=== PATIENT | male | born 1990 | race Caucasian/White ===

== ENCOUNTER 2023-03-24 11:26 | Emergency (ER) | payer BC, MEDICAID, SELFPAY ==
[2023-03-24 12:03] VITALS: BP 137/82; PULSE 76; RESP 18; TEMP 36.4; O2SAT 99
--- NOTE | 2023-03-24 12:47 | ED.URI ---
HPI - URI/Sore Throat General Chief Complaint: Upper Respiratory Infection Stated Complaint: sorethroat Time Seen by Provider: 03/24/23 12:31 Source: patient and RN notes reviewed Mode of arrival: ambulatory Limitations: no limitations History of Present Illness HPI Narrative: Patient presents today complaining of sore throat and postnasal drip since last night. He has no pain at rest, but pain increases to 5/10 with swallowing. Denies fever, cough. He has tried NyQuil and cough drops without much relief. Reports co-worker was recently diagnosed with thrush so he wanted to come and get checked out. Related Data Home Medications Medication Instructions Recorded Confirmed bupropion HCl (smoking deter) 150 mg PO 03/24/23 mg tablet,12 hr sustained-release(smoking deterrent) propranolol 20 mg tablet mg 03/24/23 sertraline 100 mg tablet mg 03/24/23 Allergies Allergy/AdvReac Type Severity Reaction Status Date / Time No Known Allergies Allergy Verified 03/24/23 12:42 Review of Systems Review of Systems: CONSTITUTIONAL: Denies body aches, fever, chills, or sweats. EYES: Denies visual changes, redness, or discharge. ENT: Denies rhinorrhea, congestion, or otalgia.+ sore throat, postnasal drip CARDIOVASCULAR: Denies chest pain, palpitations, or edema. RESPIRATORY: Denies cough or dyspnea. GASTROINTESTINAL: Denies abdominal pain, nausea, vomiting, or diarrhea. GENITOURINARY: Denies dysuria or hematuria. SKIN: Denies rash, itching, or wounds. MUSCULOSKELETAL: Denies back pain, joint pain, or myalgia. NEUROLOGIC: Denies headache, numbness, tingling, or weakness. PSYCH: Denies depression or anxiety. [facility] Surgical History Surgical History (Updated 03/24/23 @ 12:48 by Ewa Platt, [facility], ) Hx of tonsillectomy Comments At time of signature, I have reviewed and agree with nursing past medical, surgical, social and family history unless otherwise noted. Please see nursing chart for further information. There is no relevant family history pertinent to the presenting complaint Exam Narrative: GENERAL: Well-appearing, well-nourished, and in no acute distress. HEAD: Normocephalic, atraumatic. EYES: EOMI. No redness or drainage. Conjunctivae normal. ENT: Mucous membranes pink and moist. Nares clear. No rhinorrhea. TMs normal bilaterally. Throat mildly erythematous without edema or exudate. Tongue normal. tonsils absent.. Uvula midline. NECK: Normal AROM. Supple. No lymphadenopathy. CHEST: No respiratory distress. Clear to auscultation. HEART: Regular rate and rhythm. No murmur appreciated. EXTREMITIES: Normal range of motion. No edema. SKIN: Warm, dry, no rash. Capillary refill normal. Normal skin turgor. NEURO: No focal deficits. Alert and oriented x3. Gait steady. PSYCH: Normal affect. No signs of depression or anxiety. Course Course Level of Care: Express Care Visit Vital Signs Vital signs: Vital Signs Temperature 97.6 F 03/24/23 12:03 Pulse Rate 76 03/24/23 12:03 Respiratory Rate 18 03/24/23 12:03 Blood Pressure 137/82 03/24/23 12:03 Pulse Oximetry 99 03/24/23 12:03 Oxygen Delivery Room Air 03/24/23 12:03 Temperature 97.6 F 03/24/23 12:03 Pulse Rate 76 03/24/23 12:03 Respiratory Rate 18 03/24/23 12:03 Blood Pressure 137/82 03/24/23 12:03 Pulse Oximetry 99 03/24/23 12:03 Oxygen Delivery Room Air 03/24/23 12:03 Reviewed MDM - URI/Sore Throat MDM Narrative Medical decision making narrative: Rapid strep negative. Culture pending. Symptoms likely viral in etiology. Discussed [id number] treatment for symptoms. No prescription medications indicated at this time. Anticipatory guidance given. Differential Diagnosis Differential diagnosis: Likely upper respiratory infection, viral infection, pharyngitis and other (Strep throat) Lab Data Attestation: I reviewed the patient's lab results. Labs: Strep Screen
== END 2023-03-24 13:29 | disposition home or self-care (01) ==
PROVIDERS: Emergency Provider Nurse Practitioner
DX: J06.9 Acute upper respiratory infection, unspecified (principal)
CPT/HCPCS: 87081; 87880; 99203; G0463

== ENCOUNTER 2023-05-25 13:17 | Emergency (ER) | payer BC, SELFPAY ==
[2023-05-25 13:28] VITALS: BP 133/84; PULSE 81; RESP 18; TEMP 36.5; O2SAT 98
--- NOTE | 2023-05-25 14:03 | ED.SKABFB ---
HPI - Skin/Abscess/Foreign Bdy General Chief complaint: Skin/Abscess/Foreign Body Stated complaint: blister under lt foot Time Seen by Provider: 05/25/23 13:51 Source: patient and RN notes reviewed Mode of arrival: ambulatory Limitations: no limitations History of Present Illness HPI narrative: Patient presents today complaining of a blister on the bottom of his left foot x8 days. Believes he may have gotten bit by a spider. 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 Denies pain or itching. He is currently pain-free. No [id number] treatment prior to arrival. Related Data Home Medications Medication Instructions Recorded Confirmed sertraline 100 mg tablet mg 03/24/23 Allergies Allergy/AdvReac Type Severity Reaction Status Date / Time [facility] Allergy Unknown Verified 05/25/23 13:37 Review of Systems Review of Systems: CONSTITUTIONAL: Denies body aches, fever, chills, or sweats. EYES: Denies visual changes, redness, or discharge. ENT: Denies rhinorrhea, congestion, sore throat, or otalgia. CARDIOVASCULAR: Denies chest pain, palpitations, or edema. RESPIRATORY: Denies cough or dyspnea. GASTROINTESTINAL: Denies abdominal pain, nausea, vomiting, or diarrhea. GENITOURINARY: Denies dysuria or hematuria. SKIN: + blister to left foot MUSCULOSKELETAL: Denies back pain, joint pain, or myalgia. NEUROLOGIC: Denies headache, numbness, tingling, or weakness. PSYCH: Denies depression or anxiety. [facility] Surgical History Surgical History Hx of tonsillectomy Comments At time of signature, I have reviewed and agree with nursing past medical, surgical, social and family history unless otherwise noted. Please see nursing chart for further information. There is no relevant family history pertinent to the presenting complaint Exam Narrative: GENERAL: Well-appearing, well-nourished, and in no acute distress. HEAD: Normocephalic, atraumatic. EYES: EOMI. No redness or drainage. Conjunctivae normal. ENT: Mucous membranes pink and moist. NECK: Normal AROM. CHEST: No respiratory distress. EXTREMITIES: Normal range of motion. No edema. SKIN: Warm, dry, no rash. Capillary refill normal. Normal skin turgor. Approximately 1 cm round fluid-filled lesion to the plantar aspect of the arch of the left foot. Nontender to palpation. NEURO: No focal deficits. Alert and oriented x3. Gait steady. PSYCH: Normal affect. No signs of depression or anxiety. Course Course Level of Care: Express Care Visit Vital Signs Vital signs: Vital Signs Temperature 97.7 F 05/25/23 13:28 Pulse Rate 81 05/25/23 13:28 Respiratory Rate 18 05/25/23 13:28 Blood Pressure 133/84 05/25/23 13:28 Pulse Oximetry 98 05/25/23 13:28 Oxygen Delivery Room Air 05/25/23 13:28 Temperature 97.7 F 05/25/23 13:28 Pulse Rate 81 05/25/23 13:28 Respiratory Rate 18 05/25/23 13:28 Blood Pressure 133/84 05/25/23 13:28 Pulse Oximetry 98 05/25/23 13:28 Oxygen Delivery Room Air 05/25/23 13:28 Reviewed Procedures Abscess I/D foot: Date of Incision: 05/25/23 Time of Incision: 14:06 Side (if applicable): left Local Anesthetic: none Technique: other (18 gauge needle tip) Irrigation: No Packing used?: none I&D Results: Other (Clear fluid) Abcess I&D Additional Comments: Small amount of fluid resulting from small blister. Blister seems very superficial. Patient tolerated procedure well. Dressed with Band-Aid MDM - Skin/Abscess/Foreign Bdy MDM Narrative Medical decision making narrative: Patient's blister resulted in clear fluid. Will place patient on 5 days of Bactrim to ensure that there is no infection present. Discussed care instructions. Anticipatory guidance given. Differential Diagnosis Differential d
== END 2023-05-25 14:15 | disposition home or self-care (01) ==
PROVIDERS: Emergency Provider Nurse Practitioner
DX: S90.822A Blister (nonthermal), left foot, initial encounter (principal); L02.612 Cutaneous abscess of left foot; X58.XXXA Exposure to other specified factors, initial encounter
CPT/HCPCS: 10060; 99213; G0463

== ENCOUNTER 2024-03-19 15:26 | Emergency (ER) | payer BC, SELFPAY ==
[2024-03-19 15:33] VITALS: BP 148/105; PULSE 90; RESP 18; TEMP 36.6; O2SAT 98
--- NOTE | 2024-03-19 15:34 | ED_ITS ---
HPI - Eye Problem General Chief complaint: Eye Problems Stated complaint: LT Eye injury Time Seen by Provider: 03/19/24 15:27 Source: patient Mode of arrival: ambulatory Limitations: no limitations History of Present Illness HPI Narrative: Tadeo is a 33-year-old male patient presenting to the clinic today with complaints of a left eye injury/pain. He reports he got something into his eye last night while he was in the garage. Thinks it may been a bit of wood. He is having some tearing and foreign body sensation to the left lower lateral corner of the eyelid Related Data Home Medications ?Medication ?Instructions ?Recorded ?Confirmed ?Last Taken ?Type sertraline 100 mg tablet mg 03/24/23 06/05/23 Unknown History propranolol 20 mg tablet 20 mg PO Q12H 06/05/23 03/19/24 Unknown History Allergies Allergy/AdvReac Type Severity Reaction Status Date / Time cefaclor (From Ceclor) Allergy Unknown Verified 03/19/24 15:43 Review of Systems Review of Systems: Pertinent positives per HPI. Patient denies any fever, chills, rash, headache, visual changes, dizziness, cough, runny nose, sore throat, shortness of breath, chest pain, palpitations, nausea, vomiting, diarrhea, constipation, abdominal pain, or any urinary issues. [facility] Past Medical History Medical History MINERVA (generalized anxiety disorder) MDD (major depressive disorder), recurrent episode, moderate Morbid obesity Osteomyelitis of vertebra Pneumonia Chronic insomnia PTSD (post-traumatic stress disorder) Surgical History Surgical History Hx of tonsillectomy Family History Family History Father Diabetes mellitus Mother Epilepsy Social History Social History Social History: Single Smoking packs per day: 1 Smoking cigarettes per day: 20.0 Years smoked: 13 Smoking pack-years: 13.00 Smoking status: Former smoker Tobacco type: cigarettes Second hand tobacco smoke exposure: No Alcohol intake: never Substance use: current Substance use type: marijuana Last use: Pt does have a medical marijuana Do You Feel Safe in your Home?: Yes Lack of Transportation: No Lack of Food: Never True Current Housing: I Have Housing Concerned About Future Housing: No Difficulty Paying Gas/Electric Bills: No Difficulty Paying for Meds: No Currently Unemployed: No Education: Don't Know Difficulty w/ Childcare or Family Care: No Living arrangements: alone Occupation/Education: occupation Additional occupation/education comments: [employer] Gender identity (if verbalized by the patient): Male Sexual Orientation (if Verbalized by the Patient): Straight or Heterosexual Exam Narrative: General: Well-developed, well nourished, in no apparent distress Head: Normocephalic, atraumatic Eyes: Pupils equally round and reactive to light bilaterally, EOM intact, sclera and conjunctive clear, no discharge, lids normal, no obvious visual foreign body, Wood's lamp exam was performed and corneal abrasion was seen outside the visual field in the lateral left lower corner of the eye-over the sclera Ears: TMs intact and clear, ear canals clear, no drainage, grossly hearing normal. Nose: Nares patent, no discharge, no inflammation, no sinus tenderness. Mouth: Oropharynx without lesions or masses, good dentition, MMM. Neck: Supple, trachea midline, no enlargement of anterior or posterior cervical nodes, no thyroid masses or goiter palpable. Cardio: Regular rate and rhythm, s1 and s2 normal, no murmur appreciated. Resp: Clear to auscultation bilaterally anteriorly and posteriorly, no rhonchi, rales, wheezing or rubs Course Course Level of Care: Express Care Visit Vital Signs Vital signs: Vital Signs Temperature 36.6 C 03/19/24 15:33 Pulse Rate 90 03/19/24 15:33 Respiratory Rate 18 03/19/24 15:33 Blood Pressure 148/105 H 03/19/24 15:33 Pulse Oximetry 98 03/19/24 15:33 Oxygen Delivery Room Air 03/19/24 15:33 Temperature 36.6 C 03/19/24 15:33 Pulse Rate 90 03/19/24 15:33 Respiratory Rate 18 03/19/24 15:33 Blood Pressure 148/105 H 03/19/24 15:33 Pulse Oximetry 98 03/19/24 15:33 Oxygen Delivery Room Air 03/19/24 15:33 Procedures Other Procedure Procedure 1: Other Procedure: One drop of topical tetracaine anesthetic was instilled with good anesthesia. Fluorescein stain of the left eye was performed.Epithelial defect was noted to the left lateral lower sclera. NO FB, ulcer or dendritic lesions. Upper lid was everted and no FB or lesions were noted. NO Angel Luis sign. Normal saline irrigation eye solution was performed and the patient tolerated the procedure well, no adverse reaction or complications. MDM - Eye Problem MDM Narrative Medical decision making narrative: At the time of visit patient is resting comfortably on the exam table. Patient appears to be nontoxic. Procedure: Wood's lamp exam was performed. Corneal abrasion was noted to the left lower lateral eye at 7 o'clock Plan: I suspect patient has corneal abrasion. Prescription for tobramycin eyedrops was sent to the pharmacy. Supportive measures were discussed with the patient and they voiced understanding discharge instructions and agrees to treatment plan. Return precautions reviewed Differential Diagnosis Differential diagnosis: Likely corneal abrasion, conjunctivitis, acute iritis, hyphema, periorbital cellulitis, subconjunctival hemorrhage, glaucoma, corneal ulcer and ruptured globe Discharge Plan Discharge Clinical Impression: Corneal abrasion, left Qualifiers: Encounter type: initial encounter Qualified Code(s): S05.02XA - Injury of conjunctiva and corneal abrasion without foreign body, left eye, initial encounter Patient Disposition: Home, Self-Care Condition: Stable Instructions: Antibiotic Form, Corneal Abrasion (ED) Additional Instructions: Practice good hand washing techniques Avoid touching eyes Instill eyedrops as prescribed May use warm or cool moist washcloth to help alleviate discomfort If eyes are matted shut-do not pry eyes open-use a warm moist cloth to loosen matting and wipe matter away from eye May take Tylenol/Motrin as needed for pain or fever May wear sunglasses if you are having photosensitivity Follow-up with your PCP or eye doctor in 2-3 days if symptoms persist or sooner if they worsen Go to the emergency room if you develop any fever that is not controlled by Tylenol or Motrin, loss of vision, eye pain, increase eye swelling,visual changes, headache, confusion, lethargy, weakness, chest pain, or shortness of breath. Patient Language: Iranian Prescriptions: New tobramycin 0.3 % drops 1 drp LEFT EYE Q4H 7 Days Qty: 5 0RF No Action sertraline 100 mg tablet propranolol 20 mg tablet 20 mg PO Q12H Follow-up/Referrals: Andrés,MD Phil [Primary Care Provider] - Time of Disposition: 15:52
[2024-03-19] MEDS: FLUORESCEIN SOD 1 MG/STRIP AFFCTD EYE (15:40)
[2024-03-19] MEDS: DACRIOSE EYE IRRIGATION 118 ML BOTTLE AFFCTD EYE (15:40)
[2024-03-19] MEDS: TETRACAINE HCL 0.5% OPHTH SOLN 4 ML BTL AFFCTD EYE (19:25)
--- OUTSIDE RECORDS SUMMARY | 2024-03-23 01:41 | XMS_ITS | Encounter Summary ---
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 Name Role Phone Phil Bowen MD Primary Care Provider Encounter Details Date Type Department Care Team (Late st Contact Info) Description 07/08/2023 Telephone [facility] Primary Care at [address] [place] [address] Phil Bowen MD [address] [place] [address] [address] [place] [address] Social History Tobacco Use Types Packs/Day Years Used Date Smoking Tobacco: Former Cigarettes 0 12/06/2022 - 04/07/2009 PHQ-2 Answer Date Recorded PHQ-2 Total Score (If total score is 3 or more points, staff should administer the PHQ-9) 0 06/10/2023 Personal Safety Answer Date Recorded Getting School Help Needed Not on file 03/19 Sex and Gender Information Value Date Recorded Sex Assigned at Not on file Legal Sex Male 12:57 PM CDT Gender Identity Male 11/26/2022 10:43 AM CDT Sexual Orientation Straight 11/26/2022 10 :43 AM CDT documented as of this encounter Miscellaneous Notes * Telephone Encounter - Alyce Dahl MA - 07/08/2023 8:59 AM CDT Spoke with patient . He has an appointment 07/22/2023. * Telephone Encounter - Alyce Dahl MA - 07/08/2023 8:58 AM CDT ----- Message from Phil Bowen MD sent at 07/08/2023 7:45 AM CDT ----- Testosterone was low again, was he able to schedule with endocrinology or urology for TRT? documented in this encounter Plan of Treatment Not on file documented as of this encounter Visit Diagnoses Not on filedocumented in this encounter Care Teams Machine Shorthand Teacher Relationship Specialty Start Date End Date Phil Bowen MD PCP - General Family Medicine 11/12/21 documented as of this encounter
--- OUTSIDE RECORDS SUMMARY | 2024-03-23 01:41 | XMS_ITS | Referral Summary ---
Author Organization [facility] Address [address] [facility] [address] [place] [address] Phone Care Team Providers Care Form Builder Helper Name Role Phone Phil Bowen MD Primary Care Provider [phone] Allergies Active Allergy Reactions Criticality Noted Date Comments Cefaclor Other (See comments) Low 11/12/2021 unsure Medications traZODone (DESYREL) 50 mg tablet TAKE 1 TABLET(50 MG) BY MOUTH EVERY NIGHT NEEDED FOR SLEEP 100 tablet 1 4 Active testosterone cypionate (DEPO-TESTOTERO NE) 200 mg/mL injection ADMINISTER 0.5 ML IN THE MUSCLE 1 TIME A WEEK 4 Active BD Luer-Mikayla Syringe 3 mL 23 gauge x 1 1/2 syringe 4 Active sertraline (ZOLOFT) 100 mg tablet Take 1.5 tablets (150 mg total) by mouth daily 90 tablet 4 Active Active Problems Problem Noted Date Diagnosed Date Low testosterone in male 09/11/2023 Insomnia due to other mental disorder 06/10/2023 Overview (06/10/2023): new problem states that mind is racing will do trial with trazodone Morbid (severe) obesity due to excess calories 0 06/10/2023 Assessment & Plan (09/11/2023 3:20 PM CDT): Wt Readings from Last 3 Encounters: 06/10/23 135.9 kg (299 lb 8 oz) 12/12/22 129.3 kg (285 lb) 09/09/22 131.5 kg (290 lb) BMI Readings from Last 3 Encounters: 06/10/23 40.61 kg/m?? 12/12/22 38.65 kg/m?? 09/09/22 39.33 kg/m?? Not at goal of bmi <30 Continue diet and exercise BMI Follow-up includes: nutrition counseling and exercise counseling. Assessment & Plan (06/10/2023 2:52 PM BRONZE PLATER): Wt Readings from Last 3 Encounters: 06/10/23 135.9 kg (299 lb 8 oz) 12/12/22 129.3 kg (285 lb) 09/09/22 131.5 kg (290 lb) BMI Readings from Last 3 Encounters: 06/10/23 40.61 kg/m?? 12/12/22 38.65 kg/m?? 09/09/22 39.33 kg/m?? Not at goal of bmi <30 Continue diet and exercise BMI Follow-up includes: nutrition counseling and exercise counseling. Current smoker 09/09/2022 Assessment & Plan (12/12/2022 4:23 PM CDT): Will continue wellbutrin for another 3 months and then d/c after that Has now quit smoking as of about 2 months now Assessment & Plan (09/09/2022 8:03 AM CDT): Discussed different options for smoking cessation today Discussed chantix vs wellbutrin Due to an anxiety will do trial with wellbutrin If is uanble to quit can then try chantix, pt will reach out to us in the next 2- 3 months or if any side effects Mixed hyperlipidemia 05/15/2022 Assessment & Plan (06/10/2023 2:45 PM BRONZE PLATER): Brought labs today from work Showing hyperlipidemia Elevated LDL, high trigs, high cholesterol Diet and exercise discussed Recheck labs Assessment & Plan (05/15/2022 3:48 PM BRONZE PLATER): No results found for: CHOL, POCCHOL No results found for: HDL, POCHDL No results found for: LDLCALC, CLDL, HIRISKLDL, LDL, LDLC, LDLDIRECT, LDLMED, LDLP, POCLDL, SCRLDL, SMALLLDLP, TOTLDLC No results found for: TRIG, POCTRIG No results found for: POCCHDLR No results found for: POCNONHDL No results found for: POCCHLPL Class 3 severe obesity due t o excess calories without serious comorbidity with body mass index (BMI) of 40.0 to 44.9 in adult 11/12/2021 Assessment & Plan (09/11/2023 3:19 PM CDT): Wt Readings from Last 3 Encounters: 06/10/23 135.9 kg (299 lb 8 oz) 12/12/22 129.3 kg (285 lb) 09/09/22 131.5 kg (290 lb) BMI Readings from Last 3 Encounters: 06/10/23 40.61 kg/m?? 12/12/22 38.65 kg/m?? 09/09/22 39.33 kg/m?? Not at goal of bmi <30 Continue diet and exercise BMI Follow-up includes: nutrition counseling and exercise counseling. Assessment & Plan (06/10/2023 2:52 PM BRONZE PLATER): Wt Readings from Last 3 Encounters: 06/10/23 135.9 kg (299 lb 8 oz) 12/12/22 129.3 kg (285 lb) 09/09/22 131.5 kg (290 lb) BMI Readings from Last 3 Encounters: 06/10/23 40.61 kg/m?? 12/12/22 38.65 kg/m?? 09/09/22 39.33 kg/m?? Not at goal of bmi <30 Continue diet and exercise BMI Follow-up includes: nutrition counseling and exercise counseling. Assessment & Plan (12/12/2022 4:23 PM CDT): Wt Readings from Last 3 Encounters: 12/12/22 129.3 kg (285 lb) 09/09/22 131.5 kg (290 lb) 05/15/22 129.3 kg (285 lb) BMI Readings from Last 3 Encounters: 12/12/22 38.65 kg/m?? 09/09/22 39.33 kg/m?? 05/15/22 38.64 kg/m?? Not at goal of bmi <30 Continue diet and exercise BMI Follow-up includes: nutrition counseling and exercise counseling. Assessment & Plan (09/09/2022 7:52 AM CDT): Wt Readings from Last 3 Encounters: 09/09/22 131.5 kg (290 lb) 05/15/22 129.3 kg (285 lb) 02/12/22 131.5 kg (290 lb) BMI Readings from Last 3 Encounters: 09/09/22 39.33 kg/m?? 05/15/22 38.64 kg/m?? 02/12/22 39.32 kg/m?? Not at goal of bmi <30 Continue diet and exercise BMI Follow-up includes: nutrition counseling and exercise counseling. Assessment & Plan (05/15/2022 3:42 PM BRONZE PLATER): Wt Readings from Last 3 Encounters: 05/15/22 129.3 kg (285 lb) 02/12/22 131.5 kg (290 lb) 11/12/21 133.4 kg (294 lb) BMI Readings from Last 3 Encounters: 05/15/22 38.64 kg/m?? 02/12/22 39.32 kg/m?? 11/12/21 39.87 kg/m?? Not at goal of bmi <30 Continue diet and exercise BMI Follow-up includes: nutrition counseling and exercise counseling. Assessment & Plan (02/12/2022 4:29 PM BRONZE PLATER): BMI Follow-up includes: nutrition counseling and exercise counseling. Wt Readings from Last 3 Encounters: 02/12/22 131.5 kg (290 lb) 11/12/21 133.4 kg (294 lb) Improving but not at goal Assessment & Plan (11/12/2021 4:42 PM CDT): BMI Follow-up includes: nutrition counseling and exercise counseling. Not at goal PTSD (post-traumatic stress disorder) 11/12/2021 Assessment & Plan (06/10/2023 2:49 PM BRONZE PLATER): Not quite at goal Less sx of ptsd more of anxiety [id number] zoloft 100 mg every day Assessment & Plan (02/12/2022 4:29 PM BRONZE PLATER): Continue ssri - will increase zoloft to 50 mg and see how he does. Assessment & Plan (11/12/2021 4:53 PM CDT): Sx have improved with medical marijuana. Will start ssri, refer to psychiatry and psychotherapist Well adult exam 11/07/2021 Assessment & Plan (06/10/2023 2:54 PM BRONZE PLATER): Discussed lifestyle modifications, diet and exercise. Routine blood work ordered/reviewed today. Yearly vision and dental examinations. Chronic anxiety 11/07/2021 Assessment & Plan (09/11/2023 3:23 PM CDT): Starting seeing a psychiatrist but states that he doesn't think tiw as a good fit and is nto going to continue seeing her Continue zoloft 150 mg every day every day Trazodone prn Assessment & Plan (06/10/2023 2:51 PM BRONZE PLATER): Worsening sx at this time Start buspar 7.5 mg bid Continue zolfot 100 mg every day Startr trazodone 50 mg qhs prn Assessment & Plan (12/12/2022 4:23 PM CDT): States that doing well with zoloft C/w zoloft 100 mg every day Assessment & Plan (09/09/2022 7:52 AM CDT): States that doing well with zoloft C/w zoloft 100 mg every day Can consider adding wellbutrin for smoking cessation Assessment & Plan (05/15/2022 3:43 PM BRONZE PLATER): Improvement ins x but still having some sx of anxiety. Will increase zoloft 100 mg a day, and can continue inderal as well Assessment & Plan (02/12/2022 4:25 PM BRONZE PLATER): Improvement ins x but still having some social anxiety and that worsens He says that he gets sweaty and heart races Will start trial with propranolol and increase zoloft to 50 mg Assessment & Plan (11/12/2021 4:49 PM CDT): Not well controlled at this time - feels daily sx. Has episodes of nightmares as well Will do trial with ssri and titrate depending on response Resolved Problems Problem Noted Date Diagnosed Date Resolved Date Body mass index 40.0-44.9, adult ([facility]) 06/10/2023 06/10/2023 Immunizations Name Administration Dates Next Due DTP 09/02/1992,1991 Hep B, Adolescent or Pediatric 03/05/2001,2000 HiB 09/02/1992,1991 Influenza, Unspecified 06/10/2023(Deferr ed: Patient Refused),03/28/2022(Deferred: Patient Refused),11/12/2021(Deferred: Patient Refused),06/05/2021(Deferred: Patient Refused),01/12/2021(Deferred: Patient Refused) OPV 09/02/1992,1991 Tdap 05/15/2022,07/24/2016 Social History Tobacco Use Types Packs/Day Years Used Date Smoking Tobacco: Former Cigarettes 0 12/06/2022 - 04/07/2009 Tobacco Cessation:Counseling Given: Not Answered PHQ-2 Answer Date Recorded PHQ-2 Total Score [...] Orientation Straight 11/26/2022 10 :43 AM CDT Last Filed Vital Signs Vital Sign Reading Time Taken Comments Blood Pressure 116/86 06/10/2023 2:29 PM BRONZE PLATER Pulse 101 06/10/2023 2:29 PM BRONZE PLATER Temperature - - Respiratory Rate 16 06/10/2023 2:29 PM BRONZE PLATER Oxygen Saturation 97% 06/10/2023 2:29 PM BRONZE PLATER Inhaled Oxygen Concentration - - Weight 135.9 kg (299 lb 8 oz) 06/10/2023 2:29 PM BRONZE PLATER Height 182.9 cm (6' 0.01 ) 06/10/2023 2:29 PM CS T Body Mass Index 40.61 06/10/2023 2:29 PM BRONZE PLATER Plan of Treatment Not on file Insurance [employer] [address] [place] [id number] [employer] Care Teams Form Builder Helper Relationship Specialty Start Date End Date Phil Bowen MD PCP - General Family Medicine 11/12/21
--- OUTSIDE RECORDS SUMMARY | 2024-03-23 01:41 | XMS_ITS | Clinical Summary ---
Author Organization [facility] Address [address] [address] Phone Care Team Providers Care Powerhouse Oiler Name Role Phone Phil Bowen MD Primary Care Provider [phone] Allergies Active Allergy Reactions Criticality Noted Date [...] counseling. Assessment & Plan (06/10/2023 2:52 PM ROOFING TECHNICIAN): Wt Readings from Last 3 Encounters: 06/10/23 [...] 05/15/2022 Assessment & Plan (06/10/2023 2:45 PM ROOFING TECHNICIAN): Brought labs today from work Showing hyperlipidemia Elevated LDL, high trigs, high cholesterol Diet and exercise discussed Recheck labs Assessment & Plan (05/15/2022 3:48 PM ROOFING TECHNICIAN): No results found for: CHOL, POCCHOL No [...] counseling. Assessment & Plan (06/10/2023 2:52 PM ROOFING TECHNICIAN): Wt Readings from Last 3 Encounters: 06/10/23 [...] counseling. Assessment & Plan (05/15/2022 3:42 PM ROOFING TECHNICIAN): Wt Readings from Last 3 Encounters: 05/15/22 129.3 kg (285 lb) 02/12/22 131.5 kg (290 lb) 11/12/21 133.4 kg (294 lb) BMI Readings from Last 3 Encounters: 05/15/22 38.64 kg/m?? 02/12/22 39.32 kg/m?? 11/12/21 39.87 kg/m?? Not at goal of bmi <30 Continue diet and exercise BMI Follow-up includes: nutrition counseling and exercise counseling. Assessment & Plan (02/12/2022 4:29 PM ROOFING TECHNICIAN): BMI Follow-up includes: nutrition counseling and exercise counseling. Wt Readings from Last 3 Encounters: 02/12/22 131.5 kg (290 lb) 11/12/21 133.4 kg (294 lb) Improving but not at goal Assessment & Plan (11/12/2021 4:42 PM CDT): BMI Follow-up includes: nutrition counseling and exercise counseling. Not at goal PTSD (post-traumatic stress disorder) 11/12/2021 Assessment & Plan (06/10/2023 2:49 PM ROOFING TECHNICIAN): Not quite at goal Less sx of ptsd more of anxiety [id number] zoloft 100 mg every day Assessment & Plan (02/12/2022 4:29 PM ROOFING TECHNICIAN): Continue ssri - will increase zoloft to 50 mg and see how he does. Assessment & Plan (11/12/2021 4:53 PM CDT): Sx have improved with medical marijuana. Will start ssri, refer to psychiatry and psychotherapist Well adult exam 11/07/2021 Assessment & Plan (06/10/2023 2:54 PM ROOFING TECHNICIAN): Discussed lifestyle modifications, diet and exercise. Routine [...] prn Assessment & Plan (06/10/2023 2:51 PM ROOFING TECHNICIAN): Worsening sx at this time Start buspar [...] cessation Assessment & Plan (05/15/2022 3:43 PM ROOFING TECHNICIAN): Improvement ins x but still having some sx of anxiety. Will increase zoloft 100 mg a day, and can continue inderal as well Assessment & Plan (02/12/2022 4:25 PM ROOFING TECHNICIAN): Improvement ins x but still having some [...] Resolved Date Body mass index 40.0-44.9, adult ([facility]) 06/10/2023 06/10/2023 Immunizations Name Administration Dates Next [...] Orientation Straight 11/26/2022 10 :43 AM CDT Obstetrics History Last Filed Vital Signs Vital Sign Reading Time Taken Comments Blood Pressure 116/86 06/10/2023 2:29 PM ROOFING TECHNICIAN Pulse 101 06/10/2023 2:29 PM ROOFING TECHNICIAN Temperature - - Respiratory Rate 16 06/10/2023 2:29 PM ROOFING TECHNICIAN Oxygen Saturation 97% 06/10/2023 2:29 PM ROOFING TECHNICIAN Inhaled Oxygen Concentration - - Weight 135.9 kg (299 lb 8 oz) 06/10/2023 2:29 PM ROOFING TECHNICIAN Height 182.9 cm (6' 0.01 ) 06/10/2023 2:29 PM CS T Body Mass Index 40.61 06/10/2023 2:29 PM ROOFING TECHNICIAN Plan of Treatment Health Maintenance Due Date Last Done Comments Hepatitis C Screening 1991 Varicella Vaccines (1 of 2 - 13+ 2-dose series) 07/16/2004 Covid-19 Vaccine ( - season) 2023 03/27/2021, 07/31/2020, 07/10/2020 Influenza Vaccine (#1) 2023 Depression Screening 06/09/2024 06/10/2023, 12/12/2022, 09/09/2022, Additional history exists Regular Well Visit/Exam 18-64 06/09/2024 06/10/2023 DTaP/Tdap/Td Vaccine (5 - Td or Tdap) 05/15/2032 05/15/2022, 07/24/2016, 09/02/1992, Additional history exists HPV Vaccines Aged Out No longer eligi ble based on patient's age to complete this topic Pneumococcal vaccine <65 Aged Out No longer eligible based on patient's age to complete this topic Insurance [employer] OOS [employer] Care Teams Powerhouse Oiler Relationship Specialty Start Date End Date Phil Bowen MD PCP - General Family Medicine 11/12/21
--- OUTSIDE RECORDS SUMMARY | 2024-03-23 01:41 | XMS_ITS | Encounter Summary ---
Author Organization [facility] Healthcare Address [address] [place] [address] Care Team Providers Care Gardener Florist Name Role Phone Phil Bowen MD Primary Care Provider [phone] Encounter Details Date Type Department Care Team (Late st Contact Info) Description 07/28/2023 Patient Self-Triage [facility] [address] [place] [address] Mychart, Generic Provider [address] [place], [place] [id number] Social History Tobacco Use Types Packs/Day Years [...] AM CDT documented as of this encounter Plan of Treatment Not on file documented as of this encounter Visit Diagnoses Not on filedocumented in this encounter Care Teams Gardener Florist Relationship Specialty Start Date End Date Phil Bowen MD PCP - General Family Medicine 11/12/21 documented as of this encounter
--- OUTSIDE RECORDS SUMMARY | 2024-03-23 01:41 | XMS_ITS | Encounter Summary ---
Author Organization [facility] Healthcare Address [address] [place] [address] Care Team Providers Care Sports Activities Foul Judge Name Role Phone Phil Bowen MD Primary Care Provider [phone] Encounter Details Date Type Department Care Team (Late st Contact Info) Description 09/11/2023 3:15 PM CDT Telemedicine [facility] Primary Care at [address] [place] [address] Phil Bowen MD [address] [place] [address] [address] [place] [address] Chronic anxiety (Primary Dx); Class 3 severe obesity due to excess calories without serious comorbidity with body mass index (BMI) of 40.0 to 44.9 in adult (HCC); Morbid (severe) obesity due to excess calories (HCC); Low testosterone in male Social History Tobacco Use Types Packs/Day Years [...] AM CDT documented as of this encounter Ordered Prescriptions Prescription Sig Dispense Quantity Refills Last Filled Start Date End Date sertraline (ZOLOFT) 100 mg tablet Take 1.5 tablets (150 mg total) by mouth daily 09/11/2023 4 documented in this encounter Progress Notes * Phil Bowen MD - 09/11/2023 3:15 PM CDT Images from the original note were not included. Subjective/Objective Patient ID: Tadeo Vivas is a 33 y.o. male. Chief Complaint No chief complaint on file. This was a telemedicine visit with Tadeo Vivas alone which took place via real-time video connection. During the visit, I was located in the office and the patient was located at home in the [facility]. The patient visit started at 3:15 and ended at 3:30. I have explained the option of participating in a telemedicine visit to the patient. After being given an opportunity to ask questions about and discuss this type of visit, the patient verbally consented to proceeding with the telemedicine visit. The patient understands that this service replaces an office visit and they may be billed and/or responsible for any applicable copayments. A guest was not included in this video visit. HPI: Tadeo Vivas 33 y.o. man has no past medical history on file. who presents for f/u of anxietyand depression, TRT No acute complaints PHQ Screening Allergies Allergen Reactions Ceclor [Cefaclor] Other (See comments) unsure Current Outpatient Medications Medication Sig Dispense Refill buPROPion SR (ZYBAN) 150 mg 12 hr tablet TAKE 1 TABLET BY MOUTH TWICE A DAY (Patient not taking: Reported on 06/10/2023) 180 tablet 1 busPIRone (BUSPAR) 7.5 mg tablet Take 1 tablet (7.5 mg total) by mouth 2 (two) times a day 120 tablet 0 propranoloL (INDERAL) 20 mg tablet Take 1 tablet (20 mg total) by mouth 2 (two) times a day 180 tablet 0 sertraline (ZOLOFT) 100 mg tablet Take 1 tablet (100 mg total) by mouth daily 90 tablet 1 traZODone (DESYREL) 50 mg tablet TAKE 1 TABLET(50 MG) BY MOUTH EVERY NIGHT NEEDED FOR SLEEP 100 tablet 1 No current facility-administered medications for this visit. Review of Systems Constitutional: Negative for chills and fever. Respiratory: Negative for cough, chest tightness and shortness of breath. Cardiovascular: Negative for chest pain and palpitations. Gastrointestinal: Negative for abdominal pain and diarrhea. Genitourinary: Negative for difficulty urinating. Neurological: Negative for headaches. There were no vitals taken for this visit. There is no height or weight on file to calculate BMI. Physical Exam Constitutional: General: He is not in acute distress. Appearance: Normal appearance. HENT: Head: Normocephalic. Right Ear: External ear normal. Left Ear: External ear normal. Nose: Nose normal. Eyes: Extraocular Movements: Extraocular movements intact. Pulmonary: Effort: Pulmonary effort is normal. Musculoskeletal: General: Normal range of motion. Cervical back: Normal range of motion. Neurological: Mental Status: He is alert and oriented to person, place, and time. Psychiatric: Mood and Affect: Mood normal. Behavior: Behavior normal. No results found for: WBC , HGB , HCT , MCV , LABPLAT Chemistry No results found for: SODIUM , POTASSIUM , CHLORIDE , CO2 , ANIONGAP , BUNSER , CREATININE , GLUCOSE , URICACID , CALCIUM , BILITOT , PROTEIN , ALBUMIN , GFRNAA , GFRAA , ALKPHOS , AST , ALT , PHOS , MAGNESIUM Lab Results Component Value Date HGBA1C 4.7 06/10/2023 Lab Results Component Value Date LDLCALC 94 06/10/2023 Lab Results Component Value Date CHOL 207 (H) 06/10/2023 Lab Results Component Value Date HDL 35 (L) 06/10/2023 Lab Results Component Value Date LDLCALC 94 06/10/2023 Lab Results Component Value Date TRIG 388 (H) 06/10/2023 No results found for: POCCHDLR No results found for: POCNONHDL No results found for: POCCHLPL Assessment/Plan Diagnoses and all orders for this visit: Chronic anxiety (Primary) Assessment & Plan: Starting seeing a psychiatrist but states that he doesn't think tiw as a good fit and is nto going to continue seeing her Continue zoloft 150 mg every day every day Trazodone prn Class 3 severe obesity due to excess calories without serious comorbidity with body mass index (BMI) of 40.0 to 44.9 in adult (HCC) Assessment & Plan: Wt Readings from Last 3 Encounters: 06/10/23 135.9 kg (299 lb 8 oz) 12/12/22 129.3 kg (285 lb) 09/09/22 131.5 kg (290 lb) BMI Readings from Last 3 Encounters: 06/10/23 40.61 kg/m?? 12/12/22 38.65 kg/m?? 09/09/22 39.33 kg/m?? Not at goal of bmi <30 Continue diet and exercise BMI Follow-up includes: nutrition counseling and exercise counseling. Morbid (severe) obesity due to excess calories (HCC) Assessment & Plan: Wt Readings from Last 3 Encounters: 06/10/23 135.9 kg (299 lb 8 oz) 12/12/22 129.3 kg (285 lb) 09/09/22 131.5 kg (290 lb) BMI Readings from Last 3 Encounters: 06/10/23 40.61 kg/m?? 12/12/22 38.65 kg/m?? 09/09/22 39.33 kg/m?? Not at goal of bmi <30 Continue diet and exercise BMI Follow-up includes: nutrition counseling and exercise counseling. Low testosterone in male Comments: following with urology started TRT Other orders - sertraline (ZOLOFT) 100 mg tablet; Take 1.5 tablets (150 mg total) by mouth daily Return in about 7 months (around 04/12/2024) for Annual physical. documented in this encounter Miscellaneous Notes * Assessment & Plan Note - Phil Bowen MD - 09/11/2023 3:22 PM CDTAssociated Problem(s): Chronic anxiety Starting seeing a psychiatrist but states that he doesn't think tiw as a good fit and is nto going to continue seeing her Continue zoloft 150 mg every day every day Trazodone prn * Assessment & Plan Note - Phil Bowen MD - 09/11/2023 3:20 PM CDTAssociated Problem(s): Morbid (severe) obesity due to excess calories (HCC) Wt Readings from Last 3 Encounters: 06/10/23 135.9 kg (299 lb 8 oz) 12/12/22 129.3 kg (285 lb) 09/09/22 131.5 kg (290 lb) BMI Readings from Last 3 Encounters: 06/10/23 40.61 kg/m?? 12/12/22 38.65 kg/m?? 09/09/22 39.33 kg/m?? Not at goal of bmi <30 Continue diet and exercise BMI Follow-up includes: nutrition counseling and exercise counseling. * Assessment & Plan Note - Phil Bowen MD - 09/11/2023 3:19 PM CDTAssociated Problem(s): Class 3 severe obesity due to excess calories without serious comorbidity with body mass index (BMI) of 40.0 to 44.9 in adult (HCC) Wt Readings from Last 3 Encounters: 06/10/23 135.9 kg (299 lb 8 oz) 12/12/22 129.3 kg (285 lb) 09/09/22 131.5 kg (290 lb) BMI Readings from Last 3 Encounters: 06/10/23 40.61 kg/m?? 12/12/22 38.65 kg/m?? 09/09/22 39.33 kg/m?? Not at goal of bmi <30 Continue diet and exercise BMI Follow-up includes: nutrition counseling and exercise counseling. documented in this encounter Plan of Treatment Not on file documented as of this encounter Visit Diagnoses Diagnosis Chronic anxiety- Primary Anxiety state, unspecified Class 3 severe obesity due to excess calories without serious comorbidity with body mass index (BMI) of 40.0 to 44.9 in adult (HCC) Morbid (severe) obesity due to excess calories ([facility]) Low testosterone in male documented in this encounter Discontinued Medications Medication Sig Discontinue Reason Start Date End Da te propranoloL (INDERAL) 20 mg tablet Take 1 tablet (20 mg total) by mouth 2 (two) times a day 12/30/2022 09/11/2023 busPIRone (BUSPAR) 7.5 mg tabletIndications:Genera lized Anxiety Disorder Take 1 tablet (7.5 mg total) by mouth 2 (two) times a day 06/10/2023 09/11/2023 buPROPion SR (ZYBAN) 150 mg 12 hr tablet TAKE 1 TABLET BY MOUTH TWICE A DAY 12/06/2022 09/11/2023 sertraline (ZOLOFT) 100 mg tablet Take 1 tablet (100 mg total) by mouth daily 12/28/2022 09/11/2023 documented as of this encounter Care Teams Sports Activities Foul Judge Relationship Specialty Start Date End Date Phil Bowen MD PCP - General Family Medicine 11/12/21 documented as of this encounter
--- OUTSIDE RECORDS SUMMARY | 2024-03-23 01:42 | XMS_ITS | Encounter Summary ---
Author Organization [facility] Healthcare Address [address] [place] [address] Care Team Providers Care Electrician Telephone Name Role Phone Phil Bowen MD Primary Care Provider [phone] Reason for Visit * Reason Comments Anxiety Encounter Details Date Type Department Care Team (Late st Contact Info) Description 06/10/2023 2:30 PM AIR REDUCTION EQUIPMENT OPERATOR Office Visit [facility] Medical Group Primary Care at [address] [place] [address] Phil Bowen MD [address] [place] [address] [address] [place] [address] Well adult exam (Primary Dx); Class 3 severe obesity due to excess calories without serious comorbidity with body mass index (BMI) of 40.0 to 44.9 in adult (HCC); Chronic anxiety; Mixed hyperlipidemia; PTSD (post-traumatic stress disorder); Elevated ferritin level; Decreased libido; Insomnia due to other mental disorder; Fatigue, unspecified type; Morbid (severe) obesity due to excess calories (HCC); Impaired fasting blood sugar Social History Tobacco Use Types Packs/Day Years [...] AM CDT documented as of this encounter Last Filed Vital Signs Vital Sign Reading Time Taken Comments Blood Pressure 116/86 06/10/2023 2:29 PM AIR REDUCTION EQUIPMENT OPERATOR Pulse 101 06/10/2023 2:29 PM AIR REDUCTION EQUIPMENT OPERATOR Temperature - - Respiratory Rate 16 06/10/2023 2:29 PM AIR REDUCTION EQUIPMENT OPERATOR Oxygen Saturation 97% 06/10/2023 2:29 PM AIR REDUCTION EQUIPMENT OPERATOR Inhaled Oxygen Concentration - - Weight 135.9 kg (299 lb 8 oz) 06/10/2023 2:29 PM AIR REDUCTION EQUIPMENT OPERATOR Height 182.9 cm (6' 0.01 ) 06/10/2023 2:29 PM CS T Body Mass Index 40.61 06/10/2023 2:29 PM AIR REDUCTION EQUIPMENT OPERATOR documented in this encounter Ordered Prescriptions Prescription Sig Dispense Quantity Refills Last Filled Start Date End Date busPIRone (BUSPAR) 7.5 mg tabletIndications: Generalized Anxiety Disorder Take 1 tablet (7.5 mg total) by mouth 2 (two) times a day 120 tablet 06/10/2023 4 traZODone (DESYREL) 50 mg tablet Take 1 tablet (50 mg total) by mouth nightly as needed for sleep 30 tablet 1 06/10/2023 4 documented in this encounter Progress Notes * Phil Bowen MD - 06/10/2023 2:30 PM CST Images from the original note were not included. Subjective/Objective Patient ID: Tadeo Vivas is a 32 y.o. male. Chief Complaint Anxiety HPI: Tadeo Vivas 32 y.o. man has no past medical history on file. who presents for his annual physical exam and for worsening anxiety States that he has no libido and has a difficulty with discipline PHQ Screening Over the last 2 weeks, how often have you been bothered by any of the following problems? Little Interest or Pleasure in Doing Things: Not at all Feeling Down, Depressed, or Hopeless: Not at all PHQ-2 Total Score (If total score is 3 or more points, staff should administer the PHQ-9): 0 Over the past 2 weeks, how often have you been bothered by any of the following problems? Little Interest or Pleasure in Doing Things: Not at all Feeling Down, Depressed, or Hopeless: Not at all PHQ-2 Total Score (If total score is 3 or more points, staff should administer the PHQ-9): 0 Allergies Allergen Reactions Ceclor [Cefaclor] Other (See comments) unsure Current Outpatient Medications Medication Sig Dispense Refill propranoloL (INDERAL) 20 mg tablet Take 1 tablet (20 mg total) by mouth 2 (two) times a day 180 tablet 0 sertraline (ZOLOFT) 100 mg tablet Take 1 tablet (100 mg total) by mouth daily 90 tablet 1 buPROPion SR (ZYBAN) 150 mg 12 hr tablet TAKE 1 TABLET BY MOUTH TWICE A DAY (Patient not taking: Reported on 06/10/2023) 180 tablet 1 No current facility-administered medications for this visit. Review of Systems Constitutional: Negative for chills and fever. Respiratory: Negative for cough, chest tightness and shortness of breath. Cardiovascular: Negative for chest pain and palpitations. Gastrointestinal: Negative for abdominal pain and diarrhea. Genitourinary: Negative for difficulty urinating. Neurological: Negative for headaches. Psychiatric/Behavioral: Positive for decreased concentration and dysphoric mood. The patient is nervous/anxious. BP 116/86 (BP Location: Left arm, Patient Position: Sitting) Pulse 101 Resp 16 Ht 182.9 cm (6' 0.01 ) Wt 135.9 kg (299 lb 8 oz) SpO2 97% BMI 40.61 kg/m?? Body mass index is 40.61 kg/m??. Physical Exam Constitutional: Appearance: Normal appearance. Cardiovascular: Rate and Rhythm: Normal rate and regular rhythm. Pulses: Normal pulses. Heart sounds: Normal heart sounds. Pulmonary: Effort: Pulmonary effort is normal. Breath sounds: Normal breath sounds. Musculoskeletal: General: Normal range of motion. Cervical back: Neck supple. Skin: General: Skin is warm and dry. Neurological: Mental Status: He is alert and oriented to person, place, and time. Psychiatric: Mood and Affect: Mood normal. Behavior: Behavior normal. Thought Content: Thought content normal. Judgment: Judgment normal. No results found for: WBC , HGB , HCT , MCV , LABPLAT Chemistry No results found for: SODIUM , POTASSIUM , CHLORIDE , CO2 , ANIONGAP , BUNSER , CREATININE , GLUCOSE , URICACID , CALCIUM , BILITOT , PROTEIN , ALBUMIN , GFRNAA , GFRAA , ALKPHOS , AST , ALT , PHOS , MAGNESIUM No results found for: HGBA1C No results found for: GLUF , MICROALBUR , LDLCALC , CREATININE No results found for: CHOL , POCCHOL No results found for: HDL , POCHDL No results found for: LDLCALC , CLDL , HIRISKLDL , LDL , LDLC , LDLDIRECT , LDLMED , LDLP , POCLDL , SCRLDL , SMALLLDLP , TOTLDLC No results found for: TRIG , POCTRIG No results found for: POCCHDLR No results found for: POCNONHDL No results found for: POCCHLPL Assessment/Plan Diagnoses and all orders for this visit: Well adult exam (Primary) Assessment & Plan: Discussed lifestyle modifications, diet and exercise. Routine blood work ordered/reviewed today. Yearly vision and dental examinations. Class 3 severe obesity due to excess [...] Follow-up includes: nutrition counseling and exercise counseling. Chronic anxiety Assessment & Plan: Worsening sx at this time Start buspar 7.5 mg bid Continue zolfot 100 mg every day Startr trazodone 50 mg qhs prn Mixed hyperlipidemia Assessment & Plan: Brought labs today from work Showing hyperlipidemia Elevated LDL, high trigs, high cholesterol Diet and exercise discussed Recheck labs Orders: - Lipid panel; Future - Thyroid Function [place]; Future PTSD (post-traumatic stress disorder) Assessment & Plan: Not quite at goal Less sx of ptsd more of anxiety Pttutai8q zoloft 100 mg every day Elevated ferritin level Comments: new problem recheck iron levels and cbc Orders: - Iron profile w/ IBC; Future Decreased libido Comments: wants to have testosterone checked Orders: - Testosterone, Total and Free, Serum; Future Insomnia due to other mental disorder Comments: new problem states that mind is racing will do trial with trazodone Orders: - Testosterone, Total and Free, Serum; Future Fatigue, unspecified type - Testosterone, Total and Free, Serum; Future - Thyroid Function [place]; Future - Vitamin B12; Future - Vitamin D 25 hydroxy; Future Morbid (severe) obesity due to excess calories [...] Follow-up includes: nutrition counseling and exercise counseling. Other orders - traZODone (DESYREL) 50 mg tablet; Take 1 tablet (50 mg total) by mouth nightly as needed for sleep - busPIRone (BUSPAR) 7.5 mg tablet; Take 1 tablet (7.5 mg total) by mouth 2 (two) times a day Return in about 3 months (around 09/10/2023) for Recheck. REDUCTION EQUIPMENT OPERATOR documented in this encounter Miscellaneous Notes * Assessment & Plan Note - Phil Bowen MD - 06/10/2023 2:54 PM CSTAssociated Problem(s): Well adult exam Discussed lifestyle modifications, diet and exercise. Routine blood work ordered/reviewed today. Yearly vision and dental examinations. REDUCTION EQUIPMENT OPERATOR * Assessment & Plan Note - Phil Bowen MD - 06/10/2023 2:52 PM CSTAssociated Problem(s): Morbid (severe) obesity due to excess [...] Follow-up includes: nutrition counseling and exercise counseling. REDUCTION EQUIPMENT OPERATOR * Assessment & Plan Note - Phil Bowen MD - 06/10/2023 2:51 PM CSTAssociated Problem(s): Chronic anxiety Worsening sx at this time Start buspar 7.5 mg bid Continue zolfot 100 mg every day Startr trazodone 50 mg qhs prn REDUCTION EQUIPMENT OPERATOR * Assessment & Plan Note - Phil Bowen MD - 06/10/2023 2:49 PM CSTAssociated Problem(s): Class 3 severe obesity due to [...] Follow-up includes: nutrition counseling and exercise counseling. REDUCTION EQUIPMENT OPERATOR REDUCTION EQUIPMENT OPERATOR * Assessment & Plan Note - Phil Bowen MD - 06/10/2023 2:49 PM CSTAssociated Problem(s): PTSD (post-traumatic stress disorder) Not quite at goal Less sx of ptsd more of anxiety [id number] zoloft 100 mg every day REDUCTION EQUIPMENT OPERATOR * Assessment & Plan Note - Phil Bowen MD - 06/10/2023 2:45 PM CSTAssociated Problem(s): Mixed hyperlipidemia Brought labs today from work Showing hyperlipidemia Elevated LDL, high trigs, high cholesterol Diet and exercise discussed Recheck labs REDUCTION EQUIPMENT OPERATOR * Addendum Note - Phil Bowen MD - 06/10/2023 2:30 PM CSTAddended by: PHIL BOWEN on: 06/10/2023 02:57 PM Modules accepted: Orders REDUCTION EQUIPMENT OPERATOR documented in this encounter Plan of Treatment Not on file documented as of this encounter Results * Hemoglobin A1c (06/10/2023 3:19 PM AIR REDUCTION EQUIPMENT OPERATOR) Pathologist [facility] Hgb A1C 4.7 4.0 - 5.6 % CATHRYN BARBER (ONEMO) Estimated Average Glucose 88 mg/dL CATHRYN BARBER (ONEMO) Comment: The ADA recommends reporting an estimated Average Glucose (eAG) with all Hemoglobin A1c results using the equation derived from a study of 507 normal and diabetic adults. ??Minority populations were underrepresented and children were not included. ?? (Diabetes Care 31:6951-4258, 2008). ??The eAG is not equivalent to a fasting glucose. Blood 06/10/2023 3:19 PM AIR REDUCTION EQUIPMENT OPERATOR 06/10/2023 4:16 PM AIR REDUCTION EQUIPMENT OPERATOR us Phil Bowen MD LAB BLOOD ORDERABLES Final Resul t CATHRYN BARBER (ONEMO) 1 [facility] [place] [address] * (ABNORMAL) Vitamin D 25 hydroxy (06/10/2023 3:19 PM AIR REDUCTION EQUIPMENT OPERATOR) Pathologist [facility] Vitamin D 25-OH 16(L) 30 - 80 ng/mL CATHRYN BARBER (ONEMO) Blood 06/10/2023 3:19 PM AIR REDUCTION EQUIPMENT OPERATOR 06/10/2023 4:16 PM AIR REDUCTION EQUIPMENT OPERATOR us Phil Bowen MD LAB BLOOD ORDERABLES Final Resul t Performing Organization Address [facility] Co de Phone Number CATHRYN BARBER (NITISH) 1 [facility] [place] [address] * Vitamin B12 (06/10/2023 3:19 PM AIR REDUCTION EQUIPMENT OPERATOR) Vitamin B12 841 230 - 1,250 pg/mL CATHRYN BARBER (ONEMO) Blood 06/10/2023 3:19 PM AIR REDUCTION EQUIPMENT OPERATOR 06/10/2023 4:16 PM AIR REDUCTION EQUIPMENT OPERATOR us Phil Bowen MD LAB BLOOD ORDERABLES Final Resul t Performing Organization Address [facility] de Phone Number CATHRYN BARBER (ONEMO) 1 [facility] [place] [address] * Thyroid Function [place] (06/10/2023 3:19 PM AIR REDUCTION EQUIPMENT OPERATOR) TSH 2.57 0.30 - 4.20 mcIUnit/mL CATHRYN BARBER (NITISH) Blood 06/10/2023 3:19 PM AIR REDUCTION EQUIPMENT OPERATOR 06/10/2023 4:16 PM AIR REDUCTION EQUIPMENT OPERATOR us Phil Bowen MD LAB BLOOD ORDERABLES Final Resul t Performing Organization Address [facility] de Phone Number CATHRYN BARBER (NITISH) 1 [facility] [place] [address] * (ABNORMAL) Lipid panel (06/10/2023 3:19 PM AIR REDUCTION EQUIPMENT OPERATOR) Cholesterol 207(H) 30 - 199 mg/dL CATHRYN BARBER (NITISH) Comment: Interpretive Data Ages < or = 19 years ??Acceptable: ? <170 mg/dL ??Borderline high: ??170-199 mg/dL ??High: ? >or= 200 mg/dL Ages > or = 20 years ??Desirable: ?<200 mg/dL ??Borderline high: ??200-239 mg/dL ??High: ? >or= 240 mg/dL Literature References: 1. Expert Panel on Integrated Guidelines for Cardiovascular Health and Risk Reduction in Children and Adolescents. Pediatrics 2011;128:S213 2. NCEP Expert Panel. Circulation 2004;110:227 Current Interpretive Data was last revised on 2017. Triglycerides 388(H) <=149 mg/dL [facility] (NITISH) Comment: Interpretive Data Ages < or = 9 years ??Acceptable: ? <75 mg/dL ??Borderline high: ??75-99 mg/dL ??High: ? >or= 100 mg/dL Ages 10 to 20 years ??Acceptable: ? <90 mg/dL ??Borderline high: ??90-129 mg/dL ??High: ? >or= 130 mg/dL Ages > or = 20 years ??Desirable: ?<150 mg/dL ??Borderline high: ??150-199 mg/dL ??High: ? 200-499 mg/dL ?Very high: ?? >or= 499 mg/dL Literature References: 1. Expert Panel on Integrated Guidelines for Cardiovascular Health and Risk Reduction in Children and Adolescents. Pediatrics 2011;128:S213 2. NCEP Expert Panel. Circulation 2004;110:227 Current Interpretive Data was last revised on 2017. HDL 35(L) >=40 mg/dL [facility] (NITISH) Comment: Interpretive Data Ages < or = 19 years ??Acceptable: ? >45 mg/dL ??Borderline low: ?? 40-45 mg/dL ??Low: ? <40 mg/dL Ages > or = 20 years ??Desirable: ?>or= 60 mg/dL ??Low: ? <40 mg/dL Literature References: 1. Expert Panel on Integrated Guidelines for Cardiovascular Health and Risk Reduction in Children and Adolescents. Pediatrics 2011;128:S213 2. NCEP Expert Panel. Circulation 2004;110:227 Current Interpretive Data was last revised on 2017. LDL, calculated 94 <=129 mg/dL CATHRYN BARBER (NITISH) Comment: Interpretive Data Ages < or = 19 years ??Acceptable: ? <110 mg/dL ??Borderline high: ??110-129 mg/dL ??High: ?>or= 130 mg/dL Ages > or = 20 years ??Optimal: ? <100 mg/dL ??Near optimal: ?100-129 mg/dL ??Borderline high: ?? 130-159 mg/dL ??High: ?>160 mg/dL Literature References: 1. Expert Panel on Integrated Guidelines for Cardiovascular Health and Risk Reduction in Children and Adolescents. Pediatrics 2011;128:S213 2. NCEP Expert Panel. Circulation 2004;110:227 Current Interpretive Data was last revised on 2017. Non-HDL Cholesterol 172 mg/dL CATHRYN BARBER (NITISH) Comment: Interpretive Data Ages < or = 19 years ??Acceptable: ?<120 mg/dL ??Borderline high: ??120-144 mg/dL ??High: ?>145 mg/dL Ages > or = 20 years ??When triglycerides are >200 mg/dL, Non-HDL cholesterol is a secondary target of ? therapy with treatment goals that are 30 mg/dL greater than the LDL cholesterol target. ? Literature References: 1. Expert Panel on Integrated Guidelines for Cardiovascular Health and Risk Reduction in Children and Adolescents. Pediatrics 2011;128:S213 2. NCEP Expert Panel. Circulation 2004;110:227 Current Interpretive Data was last revised on 2017. Chol/HDL ratio 6 ANAMARIA BARBER (NITISH) Blood 06/10/2023 3:19 PM AIR REDUCTION EQUIPMENT OPERATOR 06/10/2023 4:16 PM AIR REDUCTION EQUIPMENT OPERATOR Phil Bowen MD LAB BLOOD ORDERABLES Final Resul t Performing Organization Address City/[facility]/ZIP Co de Phone Number CATHRYN BARBER (NITISH) 1 [facility] [place] [place] [address] * (ABNORMAL) Testosterone, Total and Free, Serum (06/10/2023 3:19 PM AIR REDUCTION EQUIPMENT OPERATOR) [facility] Testosterone 151(L) 240 - 950 ng/dL [facility] Comment: ADDITIONAL INFORMATION Testing performed by Liquid Chromatography-Tandem Mass Spectrometry (LC-MS/MS). This test was developed and its performance characteristics determined by [facility] in a manner consistent with CLIA requirements. This test has not been cleared or approved by the U.S. Food and Drug Administration. Test Performed by: [facility] [place] [address] Incubator Operator: Tadeo Pozo M.D. Ph.D.; CLIA# [id number] Testosterone, free 5.45 4.85 - 19.0 ng/dL CATHRYN DURON) Comment: ADDITIONAL INFORMATION This test was developed and its performance characteristics determined by [facility] in a manner consistent with CLIA requirements. This test has not been cleared or approved by the U.S. Food and Drug Administration. Blood 06/10/2023 3:19 PM AIR REDUCTION EQUIPMENT OPERATOR 06/10/2023 4:16 PM AIR REDUCTION EQUIPMENT OPERATOR Phil Bowen MD LAB BLOOD ORDERABLES Final Resul t Performing Organization Address [facility]/ZIP Co de Phone Number CATHRYN BARBER (NITISH) 1 [facility] [place] [place] [address] [facility] * Iron profile w/ IBC (06/10/2023 3:19 PM AIR REDUCTION EQUIPMENT OPERATOR) Iron 84 50 - 150 mcg/dL [facility] (NITISH) TIBC 306 250 - 400 mcg/dL [facility] (NITISH) Transferrin saturation 27 20 - 50 % [facility] (NITISH) Blood 06/10/2023 3:19 PM AIR REDUCTION EQUIPMENT OPERATOR 06/10/2023 4:16 PM AIR REDUCTION EQUIPMENT OPERATOR us Phil Bowen MD LAB BLOOD ORDERABLES Final Resul t [facility] (NITISH) 1 [facility] [place] [address] documented in this encounter Visit Diagnoses Diagnosis Well adult exam- Primary Routine general medical examination at a health care facility Class 3 severe obesity due to excess calories without serious comorbidity with body mass index (BMI) of 40.0 to 44.9 in adult (HCC) Chronic anxiety Anxiety state, unspecified Mixed hyperlipidemia PTSD (post-traumatic stress disorder) Posttraumatic stress disorder Elevated ferritin level Other abnormal blood chemistry Decreased libido Insomnia due to other mental disorder Fatigue, unspecified type Morbid (severe) obesity due to excess calories (HCC) Impaired fasting blood sugar Impaired fasting glucose documented in this encounter Care Teams Electrician Telephone Relationship Specialty Start Date End Date Phil Bowen MD PCP - General Family Medicine 11/12/21 documented as of this encounter
--- OUTSIDE RECORDS SUMMARY | 2024-03-23 01:42 | XMS_ITS | Encounter Summary ---
Author Organization [facility] Healthcare Address [address] [place] [address] Care Team Providers Care Space Buyer Name Role Phone Phil Bowen MD Primary Care Provider [phone] Reason for Referral * Consultation (Routine) - Closed Specialty Diagnoses / Procedures Referred By Contruby t Referred To Contact Urology Diagnoses Testicular hypofunction Phil Bowen MD [address] [place] [address] [address] [place] [address] Phone: tel: [place]: [place] [address] [place] [address] Phone: tel: fax: Referral ID Status Reason Start Date Expiration Date V isits Requested Visits Authorized [id number] Closed Specialty Services Required 06/19/2023 07/18/2024 1 1 Question Answer Please select the performing region: External Order [171] To provider: ANKIT KIDD [[id number]] # of visits: 1 Comments [facility] Location (P) [phone] (F) [phone] Encounter Details Date Type Department Care Team (Late st Contact Info) Description 06/19/2023 Orders Only [facility] Medical Group Primary Care at [place] 2 [facility] [address] [place] [phone] Phil Bowen MD [address] [place] [address] [address] [place], [place] [id number] Testicular hypofunction (Primary Dx) Social History Tobacco Use Types Packs/Day Years [...] as of this encounter Plan of Treatment Scheduled Referrals Name Type Priority Associated Diagnoses Orde r Schedule Ambulatory referral to Urology Outpatient Referral Routine Testicular hypofunction Expected: 06/19/2023 (Approximate), Expires: 06/18/2024 documented as of this encounter Visit Diagnoses Diagnosis Testicular hypofunction- Primary Other testicular hypofunction documented in this encounter Care Teams Space Buyer Relationship Specialty Start Date End Date Phil Bowen MD PCP - General Family Medicine 11/12/21 documented as of this encounter
--- OUTSIDE RECORDS SUMMARY | 2024-03-23 01:42 | XMS_ITS | Encounter Summary ---
Author Organization [facility] Healthcare Address [address] [place] [address] Care Team Providers Care Power Press Operator Name Role Phone Phil Bowen MD Primary Care Provider [phone] Encounter Details Date Type Department Care Team (Late st Contact Info) Description 08/21/2022 Patient Self-Triage [facility] HealthCare/[facility] [address] [place] [address] Mychart, Generic Provider [address] [place], [place] [id number] Social History Tobacco Use Types Packs/Day Years Used Date Smoking Tobacco: Every Day PHQ-2 Answer Date Recorded PHQ-2 Total Score (If total score is 3 or more points, staff should administer the PHQ-9) 0 02/12/2022 Sex and Gender Information Value Date Recorded Sex Assigned at Not on file Legal Sex Male 12:57 PM CDT Gender Identity Male 11/26/2022 10:43 AM CDT Sexual Orientation Straight 11/26/2022 10 :43 AM CDT documented as of this encounter Plan of Treatment Not on file documented as of this encounter Visit Diagnoses Not on filedocumented in this encounter Care Teams Power Press Operator Relationship Specialty Start Date End Date Phil Bowen MD PCP - General Family Medicine 11/12/21 documented as of this encounter
--- OUTSIDE RECORDS SUMMARY | 2024-03-23 01:42 | XMS_ITS | Encounter Summary ---
Author Organization [facility] Healthcare Address [address] [place] [address] Care Team Providers Care Brand Marketing Intern Name Role Phone Phil Bowen MD Primary Care Provider [phone] Encounter Details Date Type Department Care Team (Late st Contact Info) Description 03/24/2023 Patient Self-Triage [facility] [address] [place] [address] Mychart, Generic Provider [facility] [place] [id number] Social History Tobacco Use Types Packs/Day Years Used Date Smoking Tobacco: Every Day PHQ-2 Answer Date Recorded PHQ-2 Total Score (If total score is 3 or more points, staff should administer the PHQ-9) 3 12/12/2022 Personal Safety Answer Date Recorded Getting School [...] on filedocumented in this encounter Care Teams Brand Marketing Intern Relationship Specialty Start Date End Date Phil Bowen MD PCP - General Family Medicine 11/12/21 documented as of this encounter
--- OUTSIDE RECORDS SUMMARY | 2024-03-23 01:42 | XMS_ITS | Encounter Summary ---
Author Organization [facility] Medical [facility] Address [address] [place] [address] Care Team Providers Care Cuff Turner Name Role Phone Phil Bowen MD Primary Care Provider [phone] Reason for Visit * Reason Comments OTHER Pt states he would l antwon rx for smoking, pt states zoloft doing well. Encounter Details Date Type Department Care Team (Late st Contact Info) Description 09/09/2022 7:45 AM CDT Telemedicine [facility] Medical [facility] Primary Care at [address] [place] [address] Phil Bowen MD [address] [place] [address] [address] [place], [place] [id number] Current smoker (Primary Dx); Class 2 obesity due to excess calories without serious comorbidity with body mass index (BMI) of 39.0 to 39.9 in adult; Chronic anxiety Social History Tobacco Use Types Packs/Day Years Used Date Smoking Tobacco: Every Day PHQ-2 Answer Date Recorded PHQ-2 Total Score (If total score is 3 or more points, staff should administer the PHQ-9) 0 09/09/2022 Sex and Gender Information Value Date Recorded Sex Assigned at Not on file Legal Sex Male 12:57 PM CDT Gender Identity Male 11/26/2022 10:43 AM CDT Sexual Orientation Straight 11/26/2022 10 :43 AM CDT documented as of this encounter Last Filed Vital Signs Vital Sign Reading Time Taken Comments Blood Pressure - - Pulse - - Temperature - - Respiratory Rate - - Oxygen Saturation - - Inhaled Oxygen Concentration - - Weight 131.5 kg (290 lb) 09/09/2022 7:45 AM CDT Height 182.9 cm (6') 09/09/2022 7:45 AM CDT Body Mass Index 39.33 09/09/2022 7:45 AM CDT documented in this encounter Ordered Prescriptions Prescription Sig Dispense Quantity Refills Last Filled Start Date End Date buPROPion XL (WELLBUTRIN XL) 150 mg 24 hr tabletIndications: Anxiety with Depression,Smoking Cessation Take 1 tablet once daily for 3 days and then start taking 2 tablets daily. Start 1 week prior to the planned stop date. If you do stop smoking continue medication for 12 weeks in total. Avoid if any history of seizures. 177 tablet 09/09/2022 3 documented in this encounter Progress Notes * Phil Bowen MD - 09/09/2022 7:45 AM CDT Images from the original note were not included. Subjective/Objective Patient ID: Tadeo Vivas is a 32 y.o. male. Chief Complaint OTHER (Pt states he would like rx for smoking, pt states zoloft doing well. ) This was a telemedicine visit with Tadeo Vivas alone which took place via real-time video connection with [employer]. During the visit, I was located in the office and the patient was located at home in the [facility]. The patient visit started at 7:50 and ended at 8:04. I have explained the option of participating in a telemedicine visit to the patient. After being given an opportunity to ask questions about and discuss this type of visit, the patient verbally consented to proceeding with the telemedicine visit. The patient understands that this service replaces an office visit and they may be billed and/or responsible for any applicable copayments. HPI: Tadeo Vivas 32 y.o. man has no past medical history on file. who presents for follow up of anxiety and to discuss smoking cessation No acute complaints Doing well with zoloft PHQ Screening Over the last 2 weeks, [...] Dispense Refill propranoloL (INDERAL) 20 mg tablet TAKE 1 TABLET BY MOUTH TWICE A DAY 180 tablet 0 sertraline (ZOLOFT) 100 mg tablet TAKE 1 TABLET BY MOUTH EVERY DAY 90 tablet 0 albuterol HFA (PROVENTIL HFA,VENTOLIN HFA,PROAIR HFA) 90 mcg/actuation inhaler Inhale 2 puffs every4 (four) hours as needed for wheezing (Patient not taking: Reported on 09/09/2022) 1 each 0 benzonatate (TESSALON) 200 mg capsule Take 1 capsule (200 mg total) by mouth 3 (three) times a day as needed for cough (Patient not taking: Reported on 09/09/2022) 60 capsule 0 No current facility-administered medications for this visit. Review of Systems Constitutional: Negative for chills and fever. Respiratory: Negative for cough, chest tightness and shortness of breath. Cardiovascular: Negative for chest pain and palpitations. Gastrointestinal: Negative for abdominal pain and diarrhea. Genitourinary: Negative for difficulty urinating. Neurological: Negative for headaches. Ht 182.9 cm (6') Wt 131.5 kg (290 lb) BMI 39.33 kg/m?? Body mass index is 39.33 kg/m??. Physical Exam Constitutional: General: He is not [...] Behavior: Behavior normal. No results found for: WBC, HGB, HCT, MCV, LABPLAT Chemistry No results found for: SODIUM, POTASSIUM, CHLORIDE, CO2, ANIONGAP, BUNSER, CREATININE, GLUCOSE, URICACID, CALCIUM, BILITOT, PROTEIN, ALBUMIN, GFRNAA, ALKPHOS, AST, ALT, PHOS, MAGNESIUM No results found for: HGBA1C No results found for: GLUF, MICROALBUR, LDLCALC, CREATININE No results found for: CHOL, POCCHOL No results found for: HDL, POCHDL No results found for: LDLCALC, CLDL, HIRISKLDL, LDL, LDLC, LDLDIRECT, LDLMED, LDLP, POCLDL, SCRLDL,SMALLLDLP, TOTLDLC No results found for: TRIG, POCTRIG No results found for: POCCHDLR No results found for: POCNONHDL No results found for: POCCHLPL Assessment/Plan Diagnoses and all orders for this visit: Current smoker (Primary) Assessment & Plan: Discussed different options for smoking cessation today Discussed chantix vs wellbutrin Due to an anxiety will do trial with wellbutrin If is uanble to quit can then try chantix, pt will reach out to us in the next 2- 3 months or if any side effects Class 2 obesity due to excess calories without serious comorbidity with body mass index (BMI) of 39.0 to 39.9 in adult Assessment & Plan: Wt Readings from Last 3 Encounters: 09/09/22 131.5 kg (290 lb) 05/15/22 129.3 kg (285 lb) 02/12/22 131.5 kg (290 lb) BMI Readings from Last 3 Encounters: 09/09/22 39.33 kg/m?? 05/15/22 38.64 kg/m?? 02/12/22 39.32 kg/m?? Not at goal of bmi <30 Continue diet and exercise BMI Follow-up includes: nutrition counseling and exercise counseling. Chronic anxiety Assessment & Plan: States that doing well with zoloft C/w zoloft 100 mg every day Can consider adding wellbutrin for smoking cessation Other orders - buPROPion XL (WELLBUTRIN XL) 150 mg 24 hr tablet; Take 1 tablet once daily for 3 days and then start taking 2 tablets daily. Start 1 week prior to the planned stop date. If you do stop smoking continue medication for 12 weeks in total. Avoid if any history of seizures. Return in about 6 months (around 03/11/2023). documented in this encounter Miscellaneous Notes * Assessment & Plan Note - Phil Bowen MD - 09/09/2022 7:52 AM CDTAssociated Problem(s): Chronic anxiety States that doing well with zoloft C/w zoloft 100 mg every day Can consider adding wellbutrin for smoking cessation * Assessment & Plan Note - Phil Bowen MD - 09/09/2022 7:51 AM CDTAssociated Problem(s): Class 3 severe obesity due to excess calories without serious comorbidity with body mass index (BMI) of 40.0 to 44.9 in adult (HCC) Wt Readings from Last 3 Encounters: 09/09/22 [...] Plan Note - Phil Bowen MD - 09/09/2022 7:50 AM CDTAssociated Problem(s): Current smoker Discussed different options for smoking cessation today Discussed chantix vs wellbutrin Due to an anxiety will do trial with wellbutrin If is uanble to quit can then try chantix, pt will reach out to us in the next 2- 3 months or if any side effects documented in this encounter Plan of Treatment Not on file documented as of this encounter Visit Diagnoses Diagnosis Current smoker- Primary Class 2 obesity due to excess calories without serious comorbidity with body mass index (BMI) of 39.0 to 39.9 in adult Chronic anxiety Anxiety state, unspecified documented in this encounter Discontinued Medications Medication Sig Discontinue Reason Start Date End Da te benzonatate (TESSALON) 200 mg capsule Take 1 capsule (200 mg total) by mouth 3 (three) times a day as needed for cough 08/21/2022 09/09/2022 albuterol HFA (PROVENTIL HFA,VENTOLIN HFA,PROAIR HFA) 90 mcg/actuation inhaler Inhale 2 puffs every 4 (four) hours as needed for wheezing 08/21/2022 09/09/2022 documented as of this encounter Care Teams Cuff Turner Relationship Specialty Start Date End Date Phil Bowen MD PCP - General Family Medicine 11/12/21 documented as of this encounter
--- OUTSIDE RECORDS SUMMARY | 2024-03-23 01:42 | XMS_ITS | Encounter Summary ---
Author Organization [facility] Address [address] [place] [address] Care Team Providers Care Syrup Mixer Helper Name Role Phone Phil Bowen MD Primary Care Provider [phone] Encounter Details Date Type Department Care Team (Late st Contact Info) Description 03/24/2023 Patient Self-Triage [facility] [address] [place] [address] Mychart, Generic Provider [facility] [place] [id number] Social History Tobacco Use Types Packs/Day Years [...] on filedocumented in this encounter Care Teams Syrup Mixer Helper Relationship Specialty Start Date End Date Phil Bowen MD PCP - General Family Medicine 11/12/21 documented as of this encounter
--- OUTSIDE RECORDS SUMMARY | 2024-03-23 01:42 | XMS_ITS | Encounter Summary ---
Author Organization [facility] Medical [facility] Address [address] [place] [address] Care Team Providers Care Mine Engineering Superintendent Name Role Phone Phil Bowen MD Primary Care Provider [phone] Encounter Details Date Type Department Care Team (Late st Contact Info) Description 08/21/2022 E-Visit [facility] Virtual Care [address] [place] [address] Andreia Manning NP [address] [place] [address] Your Medications Social History Tobacco Use Types Packs/Day Years [...] Refills Last Filled Start Date End Date benzonatate (TESSALON) 200 mg capsule Take 1 capsule (200 mg total) by mouth 3 (three) times a day as needed for cough 60 capsule 08/21/2022 3 albuterol HFA (PROVENTIL HFA,VENTOLIN HFA,PROAIR HFA) 90 mcg/actuation inhaler Inhale 2 puffs every 4 (four) hours as needed for wheezing 1 each 08/21/2022 3 predniSONE (DELTASONE) 10 mg tablet Take 4 tabs PO x 3 days, then 3 tabs po x 3 days, then 2 tabs po x 3 days then 1 tab po x 3 days then stop 30 tablet 08/21/2022 3 documented in this encounter Miscellaneous Notes * E-Visit Note - Andreia Manning NP - 08/30/2022 6:42 AM CDT Tadeo Vivas 08/30/2022 E-Visit Submission Subjective/Objective: Tadeo Vivas contacted the office today via e-visit for Cough. The patient-submitted questionnaire was assessed for pertinent information and the patient's problem list, medication list, and allergies were reviewed as part of the e-visit. The chart was updated to identify any changes in these areas. Assessment: Diagnosis Plan 1. Acute cough Plan: The patient was given information regarding any new medication(s) prescribed, if applicable, as well as any [id number] remedies. He was given instructions regarding follow up and timeframe if symptoms worsen or don???t improve. These instructions were included in the [employer] message reply to the patient. Patient Instructions were included in the message reply to patient. My total encounter time on 08/30/2022 was 5 minutes which was spent in the activities documented inthe note. Andreia Manning NP * E-Visit Note - Andreia Manning NP - 08/21/2022 7:19 AM CDT Tadeo Vivas 08/21/2022 E-Visit Submission Subjective/Objective: Tadeo Vivas contacted the office today via e-visit for Cough. The patient-submitted questionnaire was assessed for pertinent information and the patient's problem list, medication list, and allergies were reviewed as part of the e-visit. The chart was updated to identify any changes in these areas. Assessment: No diagnosis found. Plan: The patient was given information regarding any new medication(s) prescribed, if applicable, as well as any [id number]-[id number] remedies. He was given instructions regarding follow up and timeframe if symptoms worsen or don???t improve. These instructions were included in the [employer] message reply to the patient. Patient Instructions were included in the message reply to patient. My total encounter time on 08/21/2022 was 5 minutes which was spent in the activities documented inthe note. New Medications Ordered This Visit predniSONE (DELTASONE) 10 mg tablet Sig: Take 4 tabs PO x 3 days, then 3 tabs po x 3 days, then 2 tabs po x 3 days then 1 tab po x 3 days then stop Dispense: 30 tablet Refill: 0 albuterol HFA (PROVENTIL HFA,VENTOLIN HFA,PROAIR HFA) 90 mcg/actuation inhaler Sig: Inhale 2 puffs every 4 (four) hours as needed for wheezing Dispense: 1 each Refill: 0 benzonatate (TESSALON) 200 mg capsule Sig: Take 1 capsule (200 mg total) by mouth 3 (three) times a day as needed for cough Dispense: 60 capsule Refill: 0 Andreia Manning NP documented in this encounter Plan of Treatment Not on file documented as of this encounter Visit Diagnoses Diagnosis Acute cough- Primary documented in this encounter Care Teams Mine Engineering Superintendent Relationship Specialty Start Date End Date Phil Bowen MD PCP - General Family Medicine 11/12/21 documented as of this encounter
--- OUTSIDE RECORDS SUMMARY | 2024-03-23 01:42 | XMS_ITS | Encounter Summary ---
Author Organization [facility] Healthcare Address [address] [place] [address] Care Team Providers Care Television Picture Tube Rebuilder Name Role Phone Phil Bowen MD Primary Care Provider [phone] Encounter Details Date Type Department Care Team (Late st Contact Info) Description 06/05/2023 Telephone [facility] Primary Care at [address] [place] [address] Phil Bowen MD [address] [place] [address] [address] [place] [address] Social History Tobacco Use Types [...] encounter Miscellaneous Notes * Telephone Encounter - Ileana Brody - 06/05/2023 7:55 AM CST FYI - Patient has moved out of the area and had to get a PCP closer to where he lives now. He said he will miss seeing Dr. Bowen and really likes him. [employer] DECISION SUPPORT documented in this encounter Plan of Treatment Not on file documented as of this encounter Visit Diagnoses Not on filedocumented in this encounter Care Teams Television Picture Tube Rebuilder Relationship Specialty Start Date End Date Phil Bowen MD PCP - General Family Medicine 11/12/21 documented as of this encounter
--- OUTSIDE RECORDS SUMMARY | 2024-03-23 01:42 | XMS_ITS | Encounter Summary ---
Author Organization [facility] Medical [facility] Address [address] [place] [address] Care Team Providers Care [employer] Founder Name Role Phone Phil Bowen MD Primary Care Provider [phone] Reason for Visit * Reason Comments Anxiety Pt states he is just checking in to see how he's doing on his meds. Encounter Details Date Type Department Care Team (Late st Contact Info) Description 12/12/2022 4:15 PM CDT Telemedicine [facility] Medical [facility] Primary Care at [address] [place] [address] Phil Bowen MD [address] [place] [address] [address] [place] [address] Class 2 obesity due to excess calories without serious comorbidity with body mass index (BMI) of 39.0 to 39.9 in adult (Primary Dx); Chronic anxiety; Current smoker Social History Tobacco Use Types Packs/Day Years Used Date Smoking Tobacco: Every Day Tobacco Cessation:Ready to Q uit: Not Asked; Counseling Given: Not Answered PHQ-2 Answer Date Recorded PHQ-2 Total Score (If total score is 3 or more points, staff should administer the PHQ-9) 3 12/12/2022 Sex and Gender Information Value Date Recorded [...] - Inhaled Oxygen Concentration - - Weight 129.3 kg (285 lb) 12/12/2022 4:09 PM CDT pt stated Height - - Body Mass Index 38.65 09/09/2022 7:45 AM CDT documented in this encounter Progress Notes * Phil Bowen MD - 12/12/2022 4:15 PM CDT Images from the original note were not included. Subjective/Objective Patient ID: Tadeo Vivas is a 32 y.o. male. Chief Complaint Anxiety (Pt states he is just checking in to see how he's doing on his meds. ) This was a telemedicine visit with Tadeo Vivas alone which took place via real-time video connection. During the visit, I was located in the office and the patient was located at home in the [facility]. The patient visit started at 4:17 pm and ended at 4:25. I have explained the option of participating [...] file. who presents for follow up of anxiety, smoking cessation PHQ Screening Over the last 2 weeks, how often have you been bothered by any of the following problems? Little Interest or Pleasure in Doing Things: Not at all Feeling Down, Depressed, or Hopeless: Nearly every day PHQ-2 Total Score (If total score is 3 or more points, staff should administer the PHQ-9): 3 Over the past 2 weeks, how often have you been bothered by any of the following problems? Little Interest or Pleasure in Doing Things: Not at all Feeling Down, Depressed, or Hopeless: Nearly every day PHQ-2 Total Score (If total score is 3 or more points, staff should administer the PHQ-9): 3 Allergies Allergen Reactions Ceclor [Cefaclor] Other (See comments) unsure Current Outpatient Medications Medication Sig Dispense Refill buPROPion SR (ZYBAN) 150 mg 12 hr tablet TAKE 1 TABLET BY MOUTH TWICE A DAY 180 tablet 1 propranoloL (INDERAL) 20 mg tablet TAKE 1 TABLET BY MOUTH TWICE A DAY 180 tablet 0 sertraline (ZOLOFT) 100 mg tablet Take 1 tablet (100 mg total) by mouth daily 90 tablet 0 No current facility-administered medications for this visit. Review of Systems Constitutional: Negative for chills and fever. Respiratory: Negative for cough, chest tightness and shortness of breath. Cardiovascular: Negative for chest pain and palpitations. Gastrointestinal: Negative for abdominal pain and diarrhea. Genitourinary: Negative for difficulty urinating. Neurological: Negative for headaches. Wt 129.3 kg (285 lb) Comment: pt stated BMI 38.65 kg/m?? Body mass index is 38.65 kg/m??. Physical Exam Constitutional: General: He is [...] Diagnoses and all orders for this visit: Class 2 obesity due to excess calories without serious comorbidity with body mass index (BMI) of 39.0 to 39.9 in adult (Primary) Assessment & Plan: Wt Readings from Last 3 Encounters: 12/12/22 [...] zoloft C/w zoloft 100 mg every day Current smoker Assessment & Plan: Will continue wellbutrin for another 3 months and then d/c after that Has now quit smoking as of about 2 months now Return in about 6 months (around 06/12/2023) for Annual physical. documented in this encounter Miscellaneous Notes * Assessment & Plan Note - Phil Bowen MD - 12/12/2022 4:23 PM CDTAssociated Problem(s): Class 3 severe obesity due to excess calories without serious comorbidity with body mass index (BMI) of 40.0 to 44.9 in adult (HCC) Wt Readings from Last 3 Encounters: 12/12/22 [...] Plan Note - Phil Bowen MD - 12/12/2022 4:23 PM CDTAssociated Problem(s): Current smoker Will continue wellbutrin for another 3 months and then d/c after that Has now quit smoking as of about 2 months now * Assessment & Plan Note - Phil Bowen MD - 12/12/2022 4:20 PM CDTAssociated Problem(s): Chronic anxiety States that doing well with zoloft C/w zoloft 100 mg every day documented in this encounter Plan of Treatment Not on file documented as of this encounter Visit Diagnoses Diagnosis Class 2 obesity due to excess calories without serious comorbidity with body mass index (BMI) of 39.0 to 39.9 in adult- Primary Chronic anxiety Anxiety state, unspecified Current smoker documented in this encounter Care Teams [employer] Founder Relationship Specialty Start Date End Date Phil Bowen MD PCP - General Family Medicine 11/12/21 documented as of this encounter
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
--- OUTSIDE RECORDS SUMMARY | 2024-03-23 01:42 | XMS_ITS | Encounter Summary ---
Author Organization [facility] Medical [facility] Address [address] [place] [address] Care Team Providers Care Unhairer Name Role Phone Phil Bowen MD Primary Care Provider [phone] Encounter Details Date Type Department Care Team (Late st Contact Info) Description 11/12/2021 Orders Only [facility] Primary Care at [place] [address] [place] [address] Phil Bowen MD [address] [place] [address] [address] [place] [address] Chronic anxiety (Primary Dx); PTSD (post-traumatic stress disorder) Social History Tobacco [...] Diagnosis Chronic anxiety- Primary Anxiety state, unspecified PTSD (post-traumatic stress disorder) Posttraumatic stress disorder documented in this encounter Care Teams Unhairer Relationship Specialty Start Date End Date Phil Bowen MD PCP - General Family Medicine 11/12/21 documented as of this encounter
--- OUTSIDE RECORDS SUMMARY | 2024-03-23 01:42 | XMS_ITS | Encounter Summary ---
Author Organization [facility] Healthcare Address [address] [place] [address] Care Team Providers Care Vp Patient Name Role Phone Phil Bowen MD Primary Care Provider [phone] Encounter Details Date Type Department Care Team (Late st Contact Info) Description 06/10/2023 3:10 PM AGRICULTURAL CONSULTANT Lab [address] [address] Elevated ferritin level; Decreased libido; Insomnia due to other mental disorder; Fatigue, unspecified type; Mixed hyperlipidemia; Impaired fasting blood sugar Social History Tobacco [...] as of this encounter Miscellaneous Notes * Result Encounter Note - Phil Bowen MD - 06/19/2023 7:43 AM CDT Testoserone level is below the normal. Would recommend to repeat testing to confirm, repeat needs to be done as discussed fasting and before 9 am * Result Encounter Note - Phil Bowen MD - 06/11/2023 7:33 AM CST Blood work shows slightly elevated cholesterol, and quite low vitamin D. I would recommend startingto take at least 2000 to 4000 units daily of vitamin D and we will repeat blood work in about 6 months Rest of the blood work is within normal ranges including his iron and thyroid CULTURAL CONSULTANT documented in this encounter Plan of Treatment Not on file documented as of this encounter Procedures Procedure Name Priority Date/Time Associated Diagnosis Comments THYROID FUNCTION CASCADE Routine 06/10/2023 3:19 PM AGRICULTURAL CONSULTANT Mixed hyperlipidemia Fatigue, unspecified type IRON PROFILE W/ IBC Routine 06/10/2023 3 :19 PM AGRICULTURAL CONSULTANT Elevated ferritin level VITAMIN D 25 HYDROXY Routine 06/10/2023 3:19 PM AGRICULTURAL CONSULTANT Fatigue, unspecified type TESTOSTERONE, TOTAL AND FREE, SERUM Routine 06/10/2023 3:19 PM AGRICULTURAL CONSULTANT Decreased libido Insomnia due to other mental disorder Fatigue, unspecified type HEMOGLOBIN A1C Routine 06/10/2023 3:19 PM AGRICULTURAL CONSULTANT Impaired fasting blood sugar VITAMIN B12 Routine 06/10/2023 3:19 PM AGRICULTURAL CONSULTANT Fatigue, unspecified type LIPID PANEL Routine 06/10/2023 3:19 PM AGRICULTURAL CONSULTANT Mixed hyperlipidemia documented in this encounter Results * Hemoglobin A1c (06/10/2023 3:19 PM AGRICULTURAL CONSULTANT) Hgb A1C 4.7 4.0 - 5.6 % [facility] ([place]) Estimated Average Glucose 88 mg/dL [facility] ([place]) Comment: The ADA recommends reporting an estimated Average Glucose (eAG) with all Hemoglobin A1c results using the equation derived from a study of 507 normal and diabetic adults. ??Minority populations were underrepresented and children were not included. ?? (Diabetes Care 31:9203-3788, 2008). ??The eAG is not equivalent to a fasting glucose. Blood 06/10/2023 3:19 PM AGRICULTURAL CONSULTANT 06/10/2023 4:16 PM AGRICULTURAL CONSULTANT us Phil Bowen MD LAB BLOOD ORDERABLES Final Resul t CATHRYN BARBER ([place]) [address] [facility] [place] [address] * (ABNORMAL) Vitamin D 25 hydroxy (06/10/2023 3:19 PM AGRICULTURAL CONSULTANT) Vitamin D 25-OH 16(L) 30 - 80 ng/mL CATHR[facility] BARBER ([place]) Blood 06/10/2023 3:19 PM AGRICULTURAL CONSULTANT 06/10/2023 4:16 PM AGRICULTURAL CONSULTANT us Phil Bowen MD LAB BLOOD ORDERABLES Final Resul t Performing Organization Address City/[facility] Co de Phone Number CATHRYN BARBER ([place]) [address] [facility] [place] [address] * Vitamin B12 (06/10/2023 3:19 PM AGRICULTURAL CONSULTANT) Vitamin B12 841 230 - 1,250 pg/mL CATHR[facility] BARBER ([place]) Blood 06/10/2023 3:19 PM AGRICULTURAL CONSULTANT 06/10/2023 4:16 PM AGRICULTURAL CONSULTANT us Phil Bowen MD LAB BLOOD ORDERABLES Final Resul t Performing Organization Address City/[facility] Co de Phone Number CATHRYN BARBER ([place]) [address] [facility] [place] [address] * Thyroid Function [place] (06/10/2023 3:19 PM AGRICULTURAL CONSULTANT) TSH 2.57 0.30 - 4.20 mcIUnit/mL CATHRYN BARBER ([place]) Blood 06/10/2023 3:19 PM AGRICULTURAL CONSULTANT 06/10/2023 4:16 PM AGRICULTURAL CONSULTANT us Phil Bowen MD LAB BLOOD ORDERABLES Final Resul t CATHRYN BARBER ([place]) [address] [facility] [place] [address] * (ABNORMAL) Lipid panel (06/10/2023 3:19 PM AGRICULTURAL CONSULTANT) Cholesterol 207(H) 30 - 199 mg/dL CATHRYN [...] on 2017. Triglycerides 388(H) <=149 mg/dL CATHRYN BARBER ([place]) Comment: Interpretive Data [...] on 2017. HDL 35(L) >=40 mg/dL CATHRYN BARBER ([place]) Comment: Interpretive Data [...] last revised on 2017. Chol/HDL ratio 6 [facility]IS[facility] ([place]) Blood 06/10/2023 3:19 PM AGRICULTURAL CONSULTANT 06/10/2023 4:16 PM AGRICULTURAL CONSULTANT us Phil Bowen MD LAB BLOOD ORDERABLES Final Resul t CATHRYN ELISABETH ([place]) [address] [facility] [place] [address] * (ABNORMAL) Testosterone, Total and Free, Serum (06/10/2023 3:19 PM AGRICULTURAL CONSULTANT) [facility] Testosterone 151(L) 240 - 950 ng/dL [facility] Comment: ADDITIONAL INFORMATION Testing performed by Liquid Chromatography-Tandem Mass Spectrometry (LC-MS/MS). This test was developed and its performance characteristics determined by [facility] in a manner consistent with CLIA requirements. This test has not been cleared or approved by the U.S. Food and Drug Administration. Test Performed by: [facility] Laboratories - [facility] [address] [place] [address] Shopping Inspector: Tadeo Pozo M.D. Ph.D.; CLIA# [id number] Testosterone, free 5.45 4.85 - 19.0 ng/dL CATHRYN BARBER ([place]) Comment: ADDITIONAL INFORMATION This test was developed and its performance characteristics determined by [facility] in a manner consistent with CLIA requirements. This test has not been cleared or approved by the U.S. Food and Drug Administration. Blood 06/10/2023 3:19 PM AGRICULTURAL CONSULTANT 06/10/2023 4:16 PM AGRICULTURAL CONSULTANT Phil Bowen MD LAB BLOOD ORDERABLES Final Resul t Performing Organization Address City/[facility]/ZIP Co de Phone Number CATHRYN BARBER ([place]ISH) [address] [facility] [place] [address] [facility] * Iron profile w/ IBC (06/10/2023 3:19 PM AGRICULTURAL CONSULTANT) Iron 84 50 - 150 mcg/dL [facility] ([place]) TIBC 306 250 - 400 mcg/dL [facility] ([place]) Transferrin saturation 27 20 - 50 % CATHRYN BARBER ([place]) Blood 06/10/2023 3:19 PM AGRICULTURAL CONSULTANT 06/10/2023 4:16 PM AGRICULTURAL CONSULTANT Phil Bowen MD LAB BLOOD ORDERABLES Final Resul t Performing Organization Address City/[facility] Co de Phone Number CATHRYN BARBER ([place]) [address] [facility] [place] [address] documented in this encounter Visit Diagnoses Diagnosis Elevated ferritin level Other abnormal blood chemistry Decreased libido Insomnia due to other mental disorder Fatigue, unspecified type Mixed hyperlipidemia Impaired fasting blood sugar Impaired fasting glucose documented in this encounter Care Teams Vp Patient Relationship Specialty Start Date End Date Phil Bowen MD PCP - General Family Medicine 11/12/21 documented as of this encounter
--- OUTSIDE RECORDS SUMMARY | 2024-03-23 01:42 | XMS_ITS | Encounter Summary ---
Author Organization [facility] Address [address] [place] [address] Care Team Providers Care Sign Wirer Name Role Phone Phil Bowen MD Primary Care Provider [phone] Reason for Visit * Reason Onset Date Comments Medication Request 09/09/2022 Encounter Details Date Type Department Care Team (Late st Contact Info) Description 09/09/2022 Telephone [facility] Medical [facility] Primary Care at [address] [place] [address] Phil Bowen MD [address] [place] [address] [address] [place] [address] Medication Request Social History Tobacco Use Types Packs/Day Years [...] encounter Miscellaneous Notes * Telephone Encounter - Nina Haynes MA - 09/09/2022 4:01 PM CDT Medication Question/Clarification Medication Name(s): Bupropion XL What is the question or clarification needed? Patient is stating that the insurance will not pay for more than one pill per day, however, if the doctor will order a dose that is not extended release he can take as many as he needs per day. If needed, Pharmacy(s) medication(s) should be sent to: on file Caller???s Callback #: [phone] Additional Comments: Patient is really trying to stop smoking and is hoping that the medication canbe called. Please advise and thank you so much Does message need to be routed? Yes-Action Needed documented in this encounter Plan of Treatment Not on file documented as of this encounter Visit Diagnoses Not on filedocumented in this encounter Care Teams Sign Wirer Relationship Specialty Start Date End Date Phil Bowen MD PCP - General Family Medicine 11/12/21 documented as of this encounter
--- OUTSIDE RECORDS SUMMARY | 2024-03-23 01:42 | XMS_ITS | Encounter Summary ---
Author Organization [facility] Medical Group Address [address] [place] [address] Care Team Providers Care Granulizing Machine Operator Name Role Phone Phil Bowen MD Primary Care Provider [phone] Reason for Visit * Reason Onset Date Comments Medical Question/Miscellaneous 09/03/2022 Encounter Details Date Type Department Care Team (Late st Contact Info) Description 09/03/2022 Telephone [facility] Medical [facility] Primary Care at [address] [place] [address] Phil Bowen MD [address] [place] [address] [address] [place] [address] Medical Question/Miscellaneous Social History Tobacco Use Types Packs/Day Years [...] encounter Miscellaneous Notes * Telephone Encounter - Corie Irby MA - 09/04/2022 4:03 PM CDT Appt scheduled. * Telephone Encounter - Janelle Rivera MA - 09/04/2022 3:10 PM CDT Call Back Caller???s Concern: Patient calling back regarding the thread message listed below, pt states if heis unavailable when calling to please leave a detailed message and pt will call back. Please advise, thanks! Caller???s Call back #: [phone] Does message need to be routed? Yes-Action Needed * Telephone Encounter - Chen Diaz MA - 09/04/2022 8:54 AM CDT Attempted to contact pt to schedule an appt to discuss options for smoke cessation. * Telephone Encounter - Nina Haynes MA - 09/03/2022 4:23 PM CDT Medical Question/Miscellaneous Caller???s Concern: Patient is looking for smoking cessation he is looking at bupropion or varenicline. Does Dr Bowen handle this, would the patient need an appt etc. Please reach out to patient when possible and thank you so much. The patient's phone number is [phone] Caller???s Call back #: [phone] (however would reach out to the patient as the number above. Thank you so much Does message need to be routed? Yes-Action Needed documented in this encounter Plan of Treatment Not on file documented as of this encounter Visit Diagnoses Not on filedocumented in this encounter Care Teams Granulizing Machine Operator Relationship Specialty Start Date End Date Phil Bowen MD PCP - General Family Medicine 11/12/21 documented as of this encounter
--- OUTSIDE RECORDS SUMMARY | 2024-03-23 01:42 | XMS_ITS | Encounter Summary ---
Author Organization [facility] Medical Group Address [address] [place] [address] Care Team Providers Care Psychiatric Therapist Name Role Phone Phil Bowen MD Primary Care Provider [phone] Encounter Details Date Type Department Care Team (Late st Contact Info) Description 09/10/2022 Orders Only [facility] Primary Care at [address] [place] [address] Phil Bowen MD [address] [place] [address] [address] [place] [address] Social History Tobacco Use Types [...] Last Filled Start Date End Date buPROPion SR (ZYBAN) 150 mg 12 hr tablet Take 1 tablet (150 mg total) by mouth 2 (two) times a day 180 tablet 09/10/2022 12/06/2022 documented in this encounter Plan of Treatment Not on file documented as of this encounter Visit Diagnoses Not on filedocumented in this encounter Discontinued Medications Medication Sig Discontinue Reason Start Date End Da te buPROPion XL (WELLBUTRIN XL) 150 mg 24 hr tabletIndications:Anxi ety with Depression,Smoking Cessation Take 1 tablet once daily for 3 days and then start taking 2 tablets daily. Start 1 week prior to the planned stop date. If you do stop smoking continue medication for 12 weeks in total. Avoid if any history of seizures. 09/09/2022 09/10/2022 documented as of this encounter Care Teams Psychiatric Therapist Relationship Specialty Start Date End Date Phil Bowen MD PCP - General Family Medicine 11/12/21 documented as of this encounter
--- OUTSIDE RECORDS SUMMARY | 2024-03-23 01:42 | XMS_ITS | Encounter Summary ---
Author Organization [facility] Healthcare Address [address] [place] [address] Care Team Providers Care Ecommerce Marketing Specialist Name Role Phone Phil Bowen MD Primary Care Provider [phone] Encounter Details Date Type Department Care Team (Late st Contact Info) Description 03/24/2023 Patient Self-Triage [facility] HealthCare/[facility] [address] [place] [address] Mychart, Generic Provider [facility] [place] [id number] Social History Tobacco Use Types Packs/Day Years [...] on filedocumented in this encounter Care Teams Ecommerce Marketing Specialist Relationship Specialty Start Date End Date Phil Bowen MD PCP - General Family Medicine 11/12/21 documented as of this encounter
--- OUTSIDE RECORDS SUMMARY | 2024-03-23 01:42 | XMS_ITS | Encounter Summary ---
Author Organization [facility] Healthcare Address [address] [place] [address] Care Team Providers Care Traffic Police Officer Name Role Phone Phil Bowen MD Primary Care Provider [phone] Encounter Details Date Type Department Care Team (Late st Contact Info) Description 08/21/2022 Patient Self-Triage [facility] HealthCare/[facility] [address] [place] [address] Mychart, Generic Provider [address] [place], [place] [id number] Social History Tobacco Use Types Packs/Day Years [...] on filedocumented in this encounter Care Teams Traffic Police Officer Relationship Specialty Start Date End Date Phil Boewn MD PCP - General Family Medicine 11/12/21 documented as of this encounter
--- OUTSIDE RECORDS SUMMARY | 2024-03-23 01:42 | XMS_ITS | Encounter Summary ---
Author Organization [facility] Address [address] [place] [address] Care Team Providers Care Associate Professor Of Violin Name Role Phone Phil Bowen MD Primary Care Provider [phone] Reason for Visit * Reason Comments Anxiety Encounter Details Date Type Department Care Team (Late st Contact Info) Description 02/12/2022 4:15 PM PUNCHBOARD FILLING MACHINE OPERATOR Office Visit [facility] Primary Care at [address] [place] [address] Phil Bowen MD [address] [place] [address] [address] [place], [place] [id number] Chronic anxiety (Primary Dx); Body mass index (BMI) of 39.0-39.9 in adult; PTSD (post-traumatic stress disorder); Class 2 obesity due to excess calories without serious comorbidity with body mass index (BMI) of 39.0 to 39.9 in adult Social History Tobacco Use Types Packs/Day Years Used Date Smoking Tobacco: Every Day Tobacco Cessation:Ready to Q uit: No; Counseling Given: Yes PHQ-2 Answer Date Recorded PHQ-2 Total Score [...] Sign Reading Time Taken Comments Blood Pressure 138/87 02/12/2022 3:52 PM PUNCHBOARD FILLING MACHINE OPERATOR Pulse 90 02/12/2022 3:52 PM PUNCHBOARD FILLING MACHINE OPERATOR Temperature - - Respiratory Rate 18 02/12/2022 3:52 PM PUNCHBOARD FILLING MACHINE OPERATOR Oxygen Saturation - - Inhaled Oxygen Concentration - - Weight 131.5 kg (290 lb) 02/12/2022 3:52 PM PUNCHBOARD FILLING MACHINE OPERATOR Height 182.9 cm (6' 0.01 ) 02/12/2022 3:52 PM CS T Body Mass Index 39.32 02/12/2022 3:52 PM PUNCHBOARD FILLING MACHINE OPERATOR documented in this encounter Ordered Prescriptions Prescription Sig Dispense Quantity Refills Last Filled Start Date End Date sertraline (ZOLOFT) 50 mg tablet Take 1 tablet (50 mg total) by mouth daily 90 tablet 02/12/2022 05/15/2022 propranoloL (INDERAL) 20 mg tablet Take 1 tablet (20 mg total) by mouth 2 (two) times a day 180 tablet 02/12/2022 06/18/2022 documented in this encounter Progress Notes * Phil Bowen MD - 02/12/2022 4:15 PM CST Images from the original note were not included. Subjective/Objective Patient ID: Tadeo Vivas is a 31 y.o. male. Chief Complaint Anxiety HPI: Tadeo Vivas 31 y.o. man has no past medical history on file. who presents for follow up of anxiety. PHQ Screening Over the last 2 [...] Current Outpatient Medications Medication Sig Dispense Refill sertraline (ZOLOFT) 25 mg tablet Take 1 [...] for difficulty urinating. Neurological: Negative for headaches. BP 138/87 (BP Location: Right arm, Patient Position: Sitting) Pulse 90 Resp 18 Ht 182.9 cm (6' 0.01 ) Wt 131.5 kg (290 lb) BMI 39.32 kg/m?? Body mass index is 39.32 kg/m??. Physical Exam Constitutional: Appearance: Normal appearance. [...] and oriented to person, place, and time. No results found for: WBC, HGB, HCT, [...] visit: Chronic anxiety (Primary) Assessment & Plan: Improvement ins x but still having some social anxiety and that worsens He says that he gets sweaty and heart races Will start trial with propranolol and increase zoloft to 50 mg Body mass index (BMI) of 39.0-39.9 in adult PTSD (post-traumatic stress disorder) Assessment & Plan: Continue ssri - will increase zoloft to 50 mg and see how he does. Class 2 obesity due to excess calories without serious comorbidity with body mass index (BMI) of 39.0 to 39.9 in adult Assessment & Plan: BMI Follow-up includes: nutrition counseling and exercise counseling. Wt Readings from Last 3 Encounters: 02/12/22 131.5 kg (290 lb) 11/12/21 133.4 kg (294 lb) Improving but not at goal Other orders - propranoloL (INDERAL) 20 mg tablet; Take 1 tablet (20 mg total) by mouth 2 (two) times a day - sertraline (ZOLOFT) 50 mg tablet; Take 1 tablet (50 mg total) by mouth daily Return in about 3 months (around 05/15/2022). HBOARD FILLING MACHINE OPERATOR documented in this encounter Miscellaneous Notes * Assessment & Plan Note - Phil Bowen MD - 02/12/2022 4:29 PM CSTAssociated Problem(s): PTSD (post-traumatic stress disorder) Continue ssri - will increase zoloft to 50 mg and see how he does. HBOARD FILLING MACHINE OPERATOR * Assessment & Plan Note - Phil Bowen MD - 02/12/2022 4:29 PM CSTAssociated Problem(s): Class 3 severe obesity due to excess calories without serious comorbidity with body mass index (BMI) of 40.0 to 44.9 in adult (HCC) BMI Follow-up includes: nutrition counseling and exercise counseling. Wt Readings from Last 3 Encounters: 02/12/22 131.5 kg (290 lb) 11/12/21 133.4 kg (294 lb) Improving but not at goal HBOARD FILLING MACHINE OPERATOR * Assessment & Plan Note - Phil Bowen MD - 02/12/2022 4:25 PM CSTAssociated Problem(s): Chronic anxiety Improvement ins x but still having some social anxiety and that worsens He says that he gets sweaty and heart races Will start trial with propranolol and increase zoloft to 50 mg HBOARD FILLING MACHINE OPERATOR documented in this encounter Plan of Treatment Not on file documented as of this encounter Visit Diagnoses Diagnosis Chronic anxiety- Primary Anxiety state, unspecified Body mass index (BMI) of 39.0-39.9 in adult PTSD (post-traumatic stress disorder) Posttraumatic stress disorder Class 2 obesity due to excess calories without serious comorbidity with body mass index (BMI) of 39.0 to 39.9 in adult documented in this encounter Discontinued Medications Medication Sig Discontinue Reason Start Date End Da te sertraline (ZOLOFT) 25 mg tablet Take 1 tablet (25 mg total) by mouth daily Reorder 11/12/2021 02/12/2022 documented as of this encounter Care Teams Associate Professor Of Violin Relationship Specialty Start Date End Date Phil Bowen MD PCP - General Family Medicine 11/12/21 documented as of this encounter
--- OUTSIDE RECORDS SUMMARY | 2024-03-23 01:42 | XMS_ITS | Encounter Summary ---
Author Organization [facility] Healthcare Address [address] [place] [address] Care Team Providers Care Organic Chemistry Teacher Name Role Phone Phil Bowen MD Primary Care Provider [phone] Encounter Details Date Type Department Care Team (Late st Contact Info) Description 08/21/2022 Patient Self-Triage [facility] [address] [place] [address] Mychart, Generic Provider [address] [place], [place] [id number] Social History Tobacco Use Types Packs/Day Years [...] on filedocumented in this encounter Care Teams Organic Chemistry Teacher Relationship Specialty Start Date End Date Phil Bowen MD PCP - General Family Medicine 11/12/21 documented as of this encounter
--- OUTSIDE RECORDS SUMMARY | 2024-03-23 01:42 | XMS_ITS | Encounter Summary ---
Author Organization [facility] Healthcare Address [address] [place] [address] Care Team Providers Care End Finder Twisting Department Name Role Phone Phil Bowen MD Primary Care Provider [phone] Encounter Details Date Type Department Care Team (Late st Contact Info) Description 06/27/2023 7:55 AM CDT [address] [address] Testicular hypofunction Social History Tobacco Use Types Packs/Day Years [...] Encounter Note - Phil Bowen MD - 07/08/2023 7:45 AM CDT Testosterone was low again, was he able to schedule with endocrinology or urology for TRT? documented in this encounter Plan of Treatment Not on file documented as of this encounter Procedures Procedure Name Priority Date/Time Associated Diagnosis Comments TESTOSTERONE, TOTAL AND FREE, SERUM Routine 06/27/2023 8:01 AM CDT Testicular hypofunction documented in this encounter Results * (ABNORMAL) Testosterone, Total and Free, Serum (06/27/2023 8:01 AM CDT) Testosterone 157(L) 240 - 950 ng/dL [facility] Comment: ADDITIONAL INFORMATION Testing performed by Liquid Chromatography-Tandem Mass Spectrometry (LC-MS/MS). This test was developed and its performance characteristics determined by [facility] in a manner consistent with CLIA requirements. This test has not been cleared or approved by the U.S. Food and Drug Administration. Test Performed by: [facility] - [place] [id number] [place] Examiner: Tadeo Pozo M.D. Ph.D.; CLIA# [id number] Testosterone, free 5.88 4.85 - 19.0 ng/dL [facility] ([place]IT[place]) Comment: ADDITIONAL INFORMATION This test was developed and its performance characteristics determined by [facility] in a manner consistent with CLIA requirements. This test has not been cleared or approved by the U.S. Food and Drug Administration. Blood 06/27/2023 8:01 AM CDT 06/27/2023 8:07 AM CDT us Phil Bowen MD LAB BLOOD ORDERABLES Final Resul t [facility] (NITISH) [address] [facility] Department [place] [address] [place] ref [facility] documented in this encounter Visit Diagnoses Diagnosis Testicular hypofunction Other testicular hypofunction documented in this encounter Care Teams End Finder Twisting Department Relationship Specialty Start Date End Date Phil Bowen MD PCP - General Family Medicine 11/12/21 documented as of this encounter
--- OUTSIDE RECORDS SUMMARY | 2024-03-23 01:42 | XMS_ITS | Encounter Summary ---
Author Organization [facility] Healthcare Address [address] [place] [address] Care Team Providers Care Air Hole Driller Name Role Phone Phil Bowen MD Primary Care Provider [phone] Encounter Details Date Type Department Care Team (Late st Contact Info) Description 03/24/2023 Patient Self-Triage [facility] [address] [place] [address] Mychart, Generic Provider [facility] [place] [id number] Social History Tobacco Use Types Packs/Day Years [...] on filedocumented in this encounter Care Teams Air Hole Driller Relationship Specialty Start Date End Date Phil Bowen MD PCP - General Family Medicine 11/12/21 documented as of this encounter
--- OUTSIDE RECORDS SUMMARY | 2024-03-23 01:42 | XMS_ITS | Encounter Summary ---
Author Organization [facility] Address [address] [place] [address] Care Team Providers Care Automotive Sales Specialist Name Role Phone Phil Bowen MD Primary Care Provider [phone] Reason for Visit * Reason Comments Anxiety 3 mo follow up; repo rts feeling that the medication did help improve some symptoms but has since not felt as though its as effective as it was in the beginning Encounter Details Date Type Department Care Team (Late st Contact Info) Description 05/15/2022 3:30 PM PAPER SPOOLER Office Visit [facility] Primary Care at [address] [place] [address] Phil Bowen MD [address] [place] [address] [address] [place] [address] Chronic anxiety (Primary Dx); Need for Tdap vaccination; Class 2 obesity due to excess calories without serious comorbidity with body mass index (BMI) of 39.0 to 39.9 in adult; Mixed hyperlipidemia Social History Tobacco Use Types Packs/Day Years [...] Sign Reading Time Taken Comments Blood Pressure 118/82 05/15/2022 3:32 PM PAPER SPOOLER Pulse 92 05/15/2022 3:32 PM PAPER SPOOLER Temperature - - Respiratory Rate 16 05/15/2022 3:32 PM PAPER SPOOLER Oxygen Saturation 98% 05/15/2022 3:32 PM PAPER SPOOLER Inhaled Oxygen Concentration - - Weight 129.3 kg (285 lb) 05/15/2022 3:32 PM PAPER SPOOLER Height 182.9 cm (6' 0.01 ) 05/15/2022 3:32 PM CS T Body Mass Index 38.64 05/15/2022 3:32 PM PAPER SPOOLER documented in this encounter Patient Instructions * Patient Instructions* Phil Bowen MD - 05/15/2022 3:30 PM PAPER SPOOLER Please have your blood work done today, we will give you a call with any results R SPOOLER documented in this encounter Ordered Prescriptions Prescription Sig Dispense Quantity Refills Last Filled Start Date End Date sertraline (ZOLOFT) 100 mg tablet Take 1 tablet (100 mg total) by mouth daily 90 tablet 05/15/2022 08/20/2022 documented in this encounter Progress Notes * Phil Bowen MD - 05/15/2022 3:30 PM CST Images from the original note were not included. Subjective/Objective Patient ID: Tadeo Vivas is a 31 y.o. male. Chief Complaint Anxiety (3 mo follow up; reports feeling that the medication did help improve some symptoms but hassince not felt as though its as effective as it was in the beginning) HPI: Tadeo Vivas 31 y.o. man has no past medical history on file. who [facility]. States that he felt sx had improved originally but now does not feel the medication is as effectiveanymore PHQ Screening Allergies Allergen Reactions Ceclor [Cefaclor] Other (See comments) unsure Current Outpatient Medications Medication Sig Dispense Refill propranoloL (INDERAL) 20 mg tablet Take 1 tablet (20 mg total) by mouth 2 (two) times a day 180 tablet 0 sertraline (ZOLOFT) 50 mg tablet Take 1 [...] difficulty urinating. Neurological: Negative for headaches. BP 118/82 (BP Location: Right arm, Patient Position: Sitting) Pulse 92 Resp 16 Ht 182.9 cm (6' 0.01 ) Wt 129.3 kg (285 lb) SpO2 98% BMI 38.64 kg/m?? Body mass index is 38.64 kg/m??. Physical Exam Constitutional: Appearance: Normal appearance. [...] day, and can continue inderal as well Need for Tdap vaccination - Tdap vaccine greater than or equal to 7yo IM Class 2 obesity due to excess calories without serious comorbidity with body mass index (BMI) of 39.0 to 39.9 in adult Assessment & Plan: Wt Readings from Last 3 Encounters: 05/15/22 129.3 kg (285 lb) 02/12/22 131.5 kg (290 lb) 11/12/21 133.4 kg (294 lb) BMI Readings from Last 3 Encounters: 05/15/22 38.64 kg/m?? 02/12/22 39.32 kg/m?? 11/12/21 39.87 kg/m?? Not at goal of bmi <30 Continue diet and exercise BMI Follow-up includes: nutrition counseling and exercise counseling. Mixed hyperlipidemia Assessment & Plan: No results found for: CHOL, POCCHOL No results found for: HDL, POCHDL No results found for: LDLCALC, CLDL, HIRISKLDL, LDL, LDLC, LDLDIRECT, LDLMED, LDLP, POCLDL, SCRLDL,SMALLLDLP, TOTLDLC No results found for: TRIG, POCTRIG No results found for: POCCHDLR No results found for: POCNONHDL No results found for: POCCHLPL Other orders - sertraline (ZOLOFT) 100 mg tablet; Take 1 tablet (100 mg total) by mouth daily No follow-ups on file. R SPOOLER documented in this encounter Miscellaneous Notes * Assessment & Plan Note - Phil Bowen MD - 05/15/2022 3:46 PM CSTAssociated Problem(s): Mixed hyperlipidemia No results found for: CHOL, POCCHOL No results found for: HDL, POCHDL No results found for: LDLCALC, CLDL, HIRISKLDL, LDL, LDLC, LDLDIRECT, LDLMED, LDLP, POCLDL, SCRLDL,SMALLLDLP, TOTLDLC No results found for: TRIG, POCTRIG No results found for: POCCHDLR No results found for: POCNONHDL No results found for: POCCHLPL R SPOOLER * Assessment & Plan Note - Phil Bowen MD - 05/15/2022 3:42 PM CSTAssociated Problem(s): Chronic anxiety Improvement ins x but still having some sx of anxiety. Will increase zoloft 100 mg a day, and can continue inderal as well R SPOOLER * Assessment & Plan Note - Phil Bowen MD - 05/15/2022 3:42 PM CSTAssociated Problem(s): Class 3 severe obesity due to excess calories without serious comorbidity with body mass index (BMI) of 40.0 to 44.9 in adult (HCC) Wt Readings from Last 3 Encounters: 05/15/22 129.3 kg (285 lb) 02/12/22 131.5 kg (290 lb) 11/12/21 133.4 kg (294 lb) BMI Readings from Last 3 Encounters: 05/15/22 38.64 kg/m?? 02/12/22 39.32 kg/m?? 11/12/21 39.87 kg/m?? Not at goal of bmi <30 Continue diet and exercise BMI Follow-up includes: nutrition counseling and exercise counseling. R SPOOLER documented in this encounter Plan of Treatment Not on file documented as of this encounter Visit Diagnoses Diagnosis Chronic anxiety- Primary Anxiety state, unspecified Need for Tdap vaccination Need for prophylactic vaccination with combined hsjzqpbrfg-gbovivx-pirnhrxft (DTP) vaccine Class 2 obesity due to excess calories without serious comorbidity with body mass index (BMI) of 39.0 to 39.9 in adult Mixed hyperlipidemia documented in this encounter Discontinued Medications Medication Sig Discontinue Reason Start Date End Da te sertraline (ZOLOFT) 50 mg tablet Take 1 tablet (50 mg total) by mouth daily Reorder 02/12/2022 05/15/2022 documented as of this encounter Orders Immunization/Injection Count Last Ordered Date First Ordered Date TDAP VACCINE GREATER THAN OR EQUAL TO 7YO IM 1 05/15/2022 documented in this encounter Care Teams Automotive Sales Specialist Relationship Specialty Start Date End Date Phil Bowen MD PCP - General Family Medicine 11/12/21 documented as of this encounter
--- OUTSIDE RECORDS SUMMARY | 2024-03-23 01:42 | XMS_ITS | Encounter Summary ---
Author Organization [facility] Healthcare Address [address] [place] [address] Care Team Providers Care Sanitation Engineer Name Role Phone Phil Bowen MD Primary Care Provider [phone] Encounter Details Date Type Department Care Team (Late st Contact Info) Description 06/19/2023 Telephone [facility] Primary Care at [address] [place] [address] Phil Bowen MD [address] [place] [address] [address] [place] [address] Social History Tobacco Use Types [...] encounter Miscellaneous Notes * Telephone Encounter - Paige Henriquez MA - 06/19/2023 1:10 PM CDT Pt aware * Telephone Encounter - Paige Henriquez MA - 06/19/2023 1:10 PM CDT ----- Message from Phil Bowen MD sent at 06/19/2023 7:43 AM CDT ----- Testoserone level is below the normal. Would recommend to repeat testing to confirm, repeat needs to be done as discussed fasting and before 9 am documented in this encounter Plan of Treatment Not on file documented as of this encounter Results * (ABNORMAL) Testosterone, Total and Free, Serum (06/27/2023 8:01 AM CDT) Testosterone 157(L) 240 - 950 ng/dL [facility] Comment: ADDITIONAL INFORMATION Testing performed by Liquid Chromatography-Tandem Mass Spectrometry (LC-MS/MS). This test was developed and its performance characteristics determined by [facility] in a manner consistent with CLIA requirements. This test has not been cleared or approved by the U.S. Food and Drug Administration. Test Performed by: [facility] [place] [address] Roof Painter: Tadeo Pozo M.D. Ph.D.; CLIA# [id number] Testosterone, free 5.88 4.85 - 19.0 ng/dL [facility] ([place]) Comment: ADDITIONAL INFORMATION This test was developed and its performance characteristics determined by [facility] in a manner consistent with CLIA requirements. This test has not been cleared or approved by the U.S. Food and Drug Administration. Blood 06/27/2023 8:01 AM CDT 06/27/2023 8:07 AM CDT us Phil Bowen MD LAB BLOOD ORDERABLES Final Resul t [facility] ([place]ITISH) [address] [facility] Department [place] [address] [place] ref Lab documented in this encounter Visit Diagnoses Diagnosis Testicular hypofunction- Primary Other testicular hypofunction documented in this encounter Care Teams Sanitation Engineer Relationship Specialty Start Date End Date Phil Bowen MD PCP - General Family Medicine 11/12/21 documented as of this encounter
--- OUTSIDE RECORDS SUMMARY | 2024-03-23 01:42 | XMS_ITS | Encounter Summary ---
Author Organization [facility] Group Address [address] [place] [address] Care Team Providers Care Customer Relations Assistant Name Role Phone Pihl Bowen MD Primary Care Provider [phone] Reason for Visit * Reason Onset Date Comments Overdue Results 12/14/2021 Encounter Details Date Type Department Care Team (Late st Contact Info) Description 12/14/2021 Telephone [facility] Medical [facility] Primary Care at [address] [place] [address] Phil Bowen MD [address] [place] [address] [address] [place], [place] [id number] Overdue Results Social History Tobacco Use Types Packs/Day Years [...] encounter Miscellaneous Notes * Telephone Encounter - Adolfo Courtney MA - 12/14/2021 3:56 PM CDT Attempted to contact patient to inform them about their overdue labs that need to be collected. LMOM informing patient about labs and locations to complete them. Informed patient to give the office acall with any questions. documented in this encounter Plan of Treatment Not on file documented as of this encounter Visit Diagnoses Not on filedocumented in this encounter Care Teams Customer Relations Assistant Relationship Specialty Start Date End Date Phil Bowen MD PCP - General Family Medicine 11/12/21 documented as of this encounter
--- OUTSIDE RECORDS SUMMARY | 2024-03-23 01:42 | XMS_ITS | Encounter Summary ---
Author Organization [facility] Healthcare Address [address] [place] [address] Care Team Providers Care Oracle Application Consultant Name Role Phone Phil Bowen MD Primary Care Provider [phone] Reason for Visit * Reason Onset Date Comments Test Results 06/11/2023 Encounter Details Date Type Department Care Team (Late st Contact Info) Description 06/11/2023 Telephone [facility] Primary Care at [address] [place] [address] Phil Bowen MD [address] [place] [address] [address] [place], [place] [id number] Test Results Social History Tobacco Use Types Packs/Day [...] encounter Miscellaneous Notes * Telephone Encounter - Citlaly Ennis MA - 06/13/2023 12:30 PM CST Noted. SITTER * Telephone Encounter - Vilma Dominguez - 06/13/2023 12:01 PM CST Call Back Caller???s Concern: I read patient Dr. Bowen's lab note, patient expressed understanding, but would like a call back once the Testosterone lab comes back. Does message need to be routed? Yes-Action Needed SITTER * Telephone Encounter - Eulogio De MA - 06/11/2023 4:26 PM PET SITTER lmom SITTER * Telephone Encounter - Eulogio De MA - 06/11/2023 4:25 PM PET SITTER ----- Message from Phil Bowen MD sent at 06/11/2023 7:33 AM PET SITTER ----- Blood work shows slightly elevated cholesterol, and quite low vitamin D. I would recommend startingto take at least 2000 to 4000 units daily of vitamin D and we will repeat blood work in about 6 months Rest of the blood work is within normal ranges including his iron and thyroid SITTER documented in this encounter Plan of Treatment Not on file documented as of this encounter Visit Diagnoses Not on filedocumented in this encounter Care Teams Oracle Application Consultant Relationship Specialty Start Date End Date Phil Bowen MD PCP - General Family Medicine 11/12/21 documented as of this encounter
--- OUTSIDE RECORDS SUMMARY | 2024-03-23 01:42 | XMS_ITS | Encounter Summary ---
Author Organization [facility] Address [address] [place] [address] Care Team Providers Care Fitness Coach Name Role Phone Phil Bowen MD Primary Care Provider [phone] Encounter Details Date Type Department Care Team (Late st Contact Info) Description 08/21/2022 Orders Only [facility] Virtual Care [address] [place] [address] Andreia Manning NP [address] [place], [place] [id number] Social History Tobacco Use Types Packs/Day Years [...] Refills Last Filled Start Date End Date albuterol HFA (PROVENTIL HFA,VENTOLIN HFA,PROAIR HFA) 90 mcg/actuation inhaler Inhale 2 puffs every 4 (four) hours as needed for wheezing 1 each 08/21/2022 3 benzonatate (TESSALON) 200 mg capsule Take 1 capsule (200 mg total) by mouth 3 (three) times a day as needed for cough 60 capsule 08/21/2022 3 predniSONE (DELTASONE) 10 mg tablet Take 4 tabs PO x 3 days, then 3 tabs po x 3 days, then 2 tabs po x 3 days then 1 tab po x 3 days then stop 30 tablet 08/21/2022 documented in this encounter Plan of Treatment Not on file documented as of this encounter Visit Diagnoses Not on filedocumented in this encounter Discontinued Medications Medication Sig Discontinue Reason Start Date End Da te predniSONE (DELTASONE) 10 mg tablet Take 4 tabs PO x 3 days, then 3 tabs po x 3 days, then 2 tabs po x 3 days then 1 tab po x 3 days then stop Reorder 08/21/2022 08/21/2022 albuterol HFA (PROVENTIL HFA,VENTOLIN HFA,PROAIR HFA) 90 mcg/actuation inhaler Inhale 2 puffs every 4 (four) hours as needed for wheezing Reorder 08/21/2022 08/21/2022 benzonatate (TESSALON) 200 mg capsule Take 1 capsule (200 mg total) by mouth 3 (three) times a day as needed for cough Reorder 08/21/2022 08/21/2022 documented as of this encounter Care Teams Fitness Coach Relationship Specialty Start Date End Date Phil Bowen MD PCP - General Family Medicine 11/12/21 documented as of this encounter
--- OUTSIDE RECORDS SUMMARY | 2024-03-23 01:42 | XMS_ITS | Encounter Summary ---
Author Organization [facility] Address [address] [place] [address] Care Team Providers Care Customer Service And Sales Consultant Name Role Phone Phil Bowen MD Primary Care Provider [phone] Reason for Referral * Consultation (Routine) - Closed Specialty Diagnoses / Procedures Referred By Alessia cordero Referred To Contact Endocrinology Diagnoses Low testosterone Phil Bowen MD [address] [place] [address] [address] [place] [address] Phone: tel: fax: Paulino Carrera MD [address] [place] [address] Phone: tel: fax: Referral ID Status Reason Start Date Expiration Date V isits Requested Visits Authorized [id number] Closed Specialty Services Required 06/27/2023 07/26/2024 1 1 Question Answer Please select the performing region: External Order [171] To provider: PAULINO CARRERA [[id number]] # of visits: 1 Encounter Details Date Type Department Care Team (Late st Contact Info) Description 06/27/2023 Orders Only [facility] [place] [address] [place] [address] Phil Bowen MD [address] [facility] [address] [place] [address] Low testosterone (Primary Dx) Social History Tobacco Use Types [...] Diagnoses Orde r Schedule Ambulatory referral to Endocrinology Outpatient Referral Routine Low testosterone Expected: 06/27/2023 (Approximate), Expires: 06/26/2024 documented as of this encounter Visit Diagnoses Diagnosis Low testosterone- Primary documented in this encounter Care Teams Customer Service And Sales Consultant Relationship Specialty Start Date End Date Phil Bowen MD PCP - General Family Medicine 11/12/21 documented as of this encounter
== END 2024-03-19 15:52 | disposition home or self-care (01) ==
PROVIDERS: Emergency Provider Nurse Practitioner Family; PCP Family Medicine
DX: S05.02XA Injury of conjunctiva and corneal abrasion without foreign body, left eye, initial encounter (principal); X58.XXXA Exposure to other specified factors, initial encounter; F41.1 Generalized anxiety disorder; E66.01 Morbid (severe) obesity due to excess calories; Z68.41 Body mass index [BMI] 40.0-44.9, adult
CPT/HCPCS: 99213; A9270; G0463